=== PATIENT | female | born 1940 | race African-American/Black ===

== ENCOUNTER 2018-07-22 17:38 | Inpatient (IN) | payer MEDICARE, MEDICAID ==
[~2018-07-22] VITALS: Ht 162.6 cm; Wt 57.6 kg
[2018-07-22 21:10] VITALS: BP 161/69
[2018-07-23] VITALS: BP 155/65
[2018-07-23] MEDS ORDERED: ALPRAZolam 0.5mg tab ORAL PRN (00:15)
[2018-07-23] MEDS ORDERED: traMADol 50mg tab ORAL PRN ×4 (00:15→07:45)
[2018-07-23] MEDS ORDERED: COREG3.125 MG ORAL (00:34)
[2018-07-23] MEDS ORDERED: ALPRAZOLAM0.5 MG PO (00:34)
[2018-07-23] MEDS ORDERED: COZAAR100 MG ORAL (00:34)
[2018-07-23 04:00] VITALS: BP 148/73
[2018-07-23 05:55] LABS: BASOPHILS % (AUTO) 0.7 % (0.0-2.0); HEMATOCRIT 39.8 % (37.0-47.0); HEMOGLOBIN 13.2 G/DL (12.0-16.0); LYMPHOCYTES % (AUTO) 20.9 % (20.0-45.0); MEAN CORPUSCULAR VOLUME 90 FL (80-99); MONOCYTES % (AUTO) 9.8 % (1.0-10.0); NEUTROPHILS % (AUTO) 66.6 % (45.0-75.0); PLATELET COUNT 318 K/UL (150-450); RED BLOOD COUNT 4.44 M/UL (4.20-5.40); RED CELL DISTRIBUTION WIDTH 12.2 % (11.6-14.8); WHITE BLOOD COUNT 8.5 K/UL (4.8-10.8)
[2018-07-23] MEDS: Heparin 5000 units/ml inj SUBQ SCH ×3 (06:00→21:38)
[2018-07-23] MEDS: Pantoprazole Inj IVP SCH (06:11)
[2018-07-23 06:24] LABS: ALANINE AMINOTRANSFERASE 24 U/L (12-78); ALBUMIN 3.9 G/DL (3.4-5.0); ALBUMIN/GLOBULIN RATIO 0.8 (1.0-2.7); ALKALINE PHOSPHATASE 68 U/L (46-116); ANION GAP 11 mmol/L (5-15); ASPARTATE AMINO TRANSFERASE 22 U/L (15-37); BILIRUBIN,TOTAL 0.6 MG/DL (0.2-1.0); BLOOD UREA NITROGEN 13 mg/dL (7-18); CARBON DIOXIDE 24 MMOL/L (21-32); CHLORIDE 102 MMOL/L (98-107); CHOLESTEROL 222 MG/DL (< 200); CREATININE 0.6 MG/DL (0.55-1.30); HDL CHOLESTEROL 100 MG/DL (40-60); PHOSPHORUS 2.5 MG/DL (2.5-4.9); POTASSIUM 3.2 MMOL/L (3.5-5.1); SODIUM 137 MMOL/L (136-145); TRIGLYCERIDES 61 MG/DL (30-150)
[2018-07-23 08:00] VITALS: BP 177/74
--- NOTE | 2018-07-23 11:24 | Consultation ---
History of Present Illness General Date patient seen: Jul 23, 2018 Present Illness HPI 78-year-old female who presents with chief complaint of chest pain. the pr is having waxing and waxing of consciousness Allergies: Coded Allergies: IODINE (Verified Allergy, Unknown, 07/23/18) PENICILLINS (Verified Allergy, Unknown, 07/23/18) SULFA (SULFONAMIDE ANTIBIOTICS) (Verified Allergy, Unknown, 07/23/18) Medication History Scheduled Carvedilol (Coreg), 3.125 MG ORAL EVERY 12 HOURS, (Reported) Losartan Potassium (Cozaar), 100 MG ORAL DAILY, (Reported) Scheduled PRN Alprazolam* (Xanax*), 0.5 MG PO Q12HR PRN for prn, (Reported) Patient History History Provided By: Patient, Medical Record, PMD Healthcare decision maker N Resuscitation status Full Code Advanced Directive on File No Review of Systems Psychiatric: Reports: prior hx, anxiety, depressed feelings Physical Exam General Appearance: alert, confused - aaox2 Last 24 Hour Vital Signs Date Time Temp Pulse Resp B/P (MAP) Pulse Ox O2 Delivery O2 Flow Rate FiO2 07/23/18 08:00 98.2 53 18 177/74 (108) 95 98.2 07/23/18 04:00 96.9 62 19 148/73 (98) 99 96.9 07/23/18 00:00 96.4 56 18 155/65 (95) 100 96.4 07/23/18 00:00 52 07/22/18 21:10 96.8 56 20 161/69 (99) 99 96.8 07/22/18 21:10 Room Air Intake and Output 07/22/18 07/23/18 19:00 07:00 # Voids 2 Laboratory Tests Test 07/23/18 04:04 White Blood Count 8.5 K/UL (4.8-10.8) Red Blood Count 4.44 M/UL (4.20-5.40) Hemoglobin 13.2 G/DL (12.0-16.0) Hematocrit 39.8 % (37.0-47.0) Mean Corpuscular Volume 90 FL (80-99) Mean Corpuscular Hemoglobin 29.7 PG (27.0-31.0) Mean Corpuscular Hemoglobin Concent 33.2 G/DL (32.0-36.0) Red Cell Distribution Width 12.2 % (11.6-14.8) Platelet Count 318 K/UL (150-450) Mean Platelet Volume 6.4 FL (6.5-10.1) L Neutrophils (%) (Auto) 66.6 % (45.0-75.0) Lymphocytes (%) (Auto) 20.9 % (20.0-45.0) Monocytes (%) (Auto) 9.8 % (1.0-10.0) Eosinophils (%) (Auto) 2.0 % (0.0-3.0) Basophils (%) (Auto) 0.7 % (0.0-2.0) Sodium Level 137 MMOL/L (136-145) Potassium Level 3.2 MMOL/L (3.5-5.1) L Chloride Level 102 MMOL/L (98-107) Carbon Dioxide Level 24 MMOL/L (21-32) Anion Gap 11 mmol/L (5-15) Blood Urea Nitrogen 13 mg/dL (7-18) Creatinine 0.6 MG/DL (0.55-1.30) Estimat Glomerular Filtration Rate mL/min (>60) Glucose Level 94 MG/DL (74-106) Calcium Level 10.0 MG/DL (8.5-10.1) Phosphorus Level 2.5 MG/DL (2.5-4.9) Magnesium Level 1.8 MG/DL (1.8-2.4) Total Bilirubin 0.6 MG/DL (0.2-1.0) Aspartate Amino Transf (AST/SGOT) 22 U/L (15-37) Alanine Aminotransferase (ALT/SGPT) 24 U/L (12-78) Alkaline Phosphatase 68 U/L (46-116) Troponin I 0.000 ng/mL (0.000-0.056) Total Protein 8.5 G/DL (6.4-8.2) H Albumin 3.9 G/DL (3.4-5.0) Globulin 4.6 g/dL Albumin/Globulin Ratio 0.8 (1.0-2.7) L Triglycerides Level 61 MG/DL (30-150) Cholesterol Level 222 MG/DL (< 200) H LDL Cholesterol 108 mg/dL (<100) H HDL Cholesterol 100 MG/DL (40-60) H Cholesterol/HDL Ratio 2.2 (3.3-4.4) L Thyroid Stimulating Hormone (TSH) 2.815 uiU/mL (0.358-3.740) Height (Feet): 5 Height (Inches): 4.00 Weight (Pounds): 122 Medications Current Medications Medications (Trade) Dose Ordered Sig/Tona Route PRN Reason Start Time Stop Time Status Last Admin Dose Admin Acetaminophen (Tylenol) 650 mg Q6H PRN ORAL Mild Pain/Temp > 100.5 07/23/18 00:15 08/22/18 00:14 Alprazolam (Xanax) 0.5 mg Q12H PRN ORAL For Anxiety 07/23/18 00:15 07/30/18 00:14 07/23/18 03:22 Amlodipine Besylate (Norvasc) 10 mg DAILY ORAL 07/23/18 09:00 08/22/18 08:59 Carvedilol (Coreg) 3.125 mg EVERY 12 HOURS ORAL 07/23/18 09:00 08/22/18 08:59 Citalopram Hydrobromide (celeXA) 10 mg DAILY ORAL 07/23/18 09:00 08/22/18 08:59 Docusate Sodium (Colace) 100 mg TWICE A DAY ORAL 07/23/18 09:00 08/22/18 08:59 Heparin Sodium (Porcine) (Heparin 5000 units/ml) 5,000 units EVERY 8 HOURS SUBQ 07/23/18 06:00 08/22/18 05:59 Hydralazine HCl (Apresoline) 10 mg Q6H PRN ORAL SBP >160 07/23/18 00:15 08/22/18 00:14 Losartan Potassium (Cozaar) 100 mg DAILY ORAL 07/23/18 09:00 08/22/18 08:59 Ondansetron HCl (Zofran) 4 mg Q4H PRN IVP Nausea & Vomiting 07/23/18 00:15 08/22/18 00:14 Pantoprazole (Protonix) 40 mg ACBREAKFAST IVP 07/23/18 06:30 08/22/18 06:29 07/23/18 06:11 Tramadol HCl (Ultram) 100 mg Q12H PRN ORAL Pain (4-10) 07/23/18 07:45 07/30/18 07:44 Assessment/Plan Assessment/Plan encephalopathy due to [facility] Sarah Beth Perez MD Jul 23, 2018 11:24
[2018-07-23 12:00] VITALS: BP 178/66
--- NOTE | 2018-07-23 12:07 | Consultation ---
History of Present Illness General Date patient seen: Jul 23, 2018 Referring physician: Dr Pineda Reason for Consultation: chest pain Present Illness HPI 78 years old female with hx of dementia, Cercival spine fusion, LBBB, HTN, was taken to [facility] with CC of intermittent chest pain, left sided neck and shoulder pain, aggravated by movement. Her BP was 150/40, sat 100% on room air. she had an abnormal EKG, negative troponin. She is transferred [place] [facility] work [place]. Currently, she is sitting up in her bed. looks comfortable. Smiles a lot. Doesn't know her age or address. Children are at bed- site helping with taking HPI. Allergies: Coded Allergies: IODINE (Verified Allergy, Unknown, 07/23/18) PENICILLINS (Verified Allergy, Unknown, 07/23/18) SULFA (SULFONAMIDE ANTIBIOTICS) (Verified Allergy, Unknown, 07/23/18) Medication History Scheduled Carvedilol (Coreg), 3.125 MG ORAL EVERY 12 HOURS, (Reported) Losartan Potassium (Cozaar), 100 MG ORAL DAILY, (Reported) Scheduled PRN Alprazolam* (Xanax*), 0.5 MG PO Q12HR PRN for prn, (Reported) Patient History Healthcare decision maker Resuscitation status Full Code Advanced Directive on File No Past Medical/Surgical History Past Medical/Surgical History: (1) Alzheimer's dementia (2) Hypertension (3) LBBB (left bundle branch block) (4) H/O neck surgery Review of Systems All Other Systems: negative except mentioned in HPI Physical Exam General Appearance: cachetic Lines, tubes and drains: peripheral HEENT: normocephalic, anicteric Neck: non-tender, normal alignment Respiratory/Chest: chest wall non-tender, lungs clear Breasts: no masses Cardiovascular/Chest: normal peripheral pulses Abdomen: normal bowel sounds, non tender Genitourinary/Rectal: normal genital exam Extremities: normal range of motion Skin Exam: normal pigmentation Neurologic: plasterer tender II-XII grossly normal Last 24 Hour Vital Signs Date Time Temp Pulse Resp B/P (MAP) Pulse Ox O2 Delivery O2 Flow Rate FiO2 07/23/18 08:00 98.2 53 18 177/74 (108) 95 98.2 07/23/18 04:00 96.9 62 19 148/73 (98) 99 96.9 07/23/18 00:00 96.4 56 18 155/65 (95) 100 96.4 07/23/18 00:00 52 07/22/18 21:10 96.8 56 20 161/69 (99) 99 96.8 07/22/18 21:10 Room Air Intake and Output 07/22/18 07/23/18 19:00 07:00 # Voids 2 Laboratory Tests Test 07/23/18 04:04 White Blood Count 8.5 K/UL (4.8-10.8) Red Blood Count 4.44 M/UL (4.20-5.40) Hemoglobin 13.2 G/DL (12.0-16.0) Hematocrit 39.8 % (37.0-47.0) Mean Corpuscular Volume 90 FL (80-99) Mean Corpuscular Hemoglobin 29.7 PG (27.0-31.0) Mean Corpuscular Hemoglobin Concent 33.2 G/DL (32.0-36.0) Red Cell Distribution Width 12.2 % (11.6-14.8) Platelet Count 318 K/UL (150-450) Mean Platelet Volume 6.4 FL (6.5-10.1) L Neutrophils (%) (Auto) 66.6 % (45.0-75.0) Lymphocytes (%) (Auto) 20.9 % (20.0-45.0) Monocytes (%) (Auto) 9.8 % (1.0-10.0) Eosinophils (%) (Auto) 2.0 % (0.0-3.0) Basophils (%) (Auto) 0.7 % (0.0-2.0) Sodium Level 137 MMOL/L (136-145) Potassium Level 3.2 MMOL/L (3.5-5.1) L Chloride Level 102 MMOL/L (98-107) Carbon Dioxide Level 24 MMOL/L (21-32) Anion Gap 11 mmol/L (5-15) Blood Urea Nitrogen 13 mg/dL (7-18) Creatinine 0.6 MG/DL (0.55-1.30) Estimat Glomerular Filtration Rate mL/min (>60) Glucose Level 94 MG/DL (74-106) Calcium Level 10.0 MG/DL (8.5-10.1) Phosphorus Level 2.5 MG/DL (2.5-4.9) Magnesium Level 1.8 MG/DL (1.8-2.4) Total Bilirubin 0.6 MG/DL (0.2-1.0) Aspartate Amino Transf (AST/SGOT) 22 U/L (15-37) Alanine Aminotransferase (ALT/SGPT) 24 U/L (12-78) Alkaline Phosphatase 68 U/L (46-116) Troponin I 0.000 ng/mL (0.000-0.056) Total Protein 8.5 G/DL (6.4-8.2) H Albumin 3.9 G/DL (3.4-5.0) Globulin 4.6 g/dL Albumin/Globulin Ratio 0.8 (1.0-2.7) L Triglycerides Level 61 MG/DL (30-150) Cholesterol Level 222 MG/DL (< 200) H LDL Cholesterol 108 mg/dL (<100) H HDL Cholesterol 100 MG/DL (40-60) H Cholesterol/HDL Ratio 2.2 (3.3-4.4) L Thyroid Stimulating Hormone (TSH) 2.815 uiU/mL (0.358-3.740) Height (Feet): 5 Height (Inches): 4.00 Weight (Pounds): 122 Medications Current Medications Medications (Trade) Dose Ordered Sig/Tona Route PRN Reason Start Time Stop Time Status Last Admin Dose Admin Acetaminophen (Tylenol) 650 mg Q6H PRN ORAL Mild Pain/Temp > 100.5 07/23/18 00:15 08/22/18 00:14 Alprazolam (Xanax) 0.5 mg Q12H PRN ORAL For Anxiety 07/23/18 00:15 07/30/18 00:14 07/23/18 03:22 Amlodipine Besylate (Norvasc) 10 mg DAILY ORAL 07/23/18 09:00 08/22/18 08:59 Carvedilol (Coreg) 3.125 mg EVERY 12 HOURS ORAL 07/23/18 09:00 08/22/18 08:59 Citalopram Hydrobromide (celeXA) 10 mg DAILY ORAL 07/23/18 09:00 08/22/18 08:59 Docusate Sodium (Colace) 100 mg TWICE A DAY ORAL 9/6/18 09:00 08/22/18 08:59 Heparin Sodium (Porcine) (Heparin 5000 units/ml) 5,000 units EVERY 8 HOURS SUBQ 07/23/18 06:00 08/22/18 05:59 Hydralazine HCl (Apresoline) 10 mg Q6H PRN ORAL SBP >160 07/23/18 00:15 08/22/18 00:14 Losartan Potassium (Cozaar) 100 mg DAILY ORAL 07/23/18 09:00 08/22/18 08:59 Ondansetron HCl (Zofran) 4 mg Q4H PRN IVP Nausea & Vomiting 07/23/18 00:15 08/22/18 00:14 Pantoprazole (Protonix) 40 mg ACBREAKFAST IVP 07/23/18 06:30 08/22/18 06:29 07/23/18 06:11 Tramadol HCl (Ultram) 100 mg Q12H PRN ORAL Pain (4-10) 07/23/18 07:45 07/30/18 07:44 Assessment/Plan Problem List: (1) Acute coronary syndrome ICD Codes: I24.9 - Acute ischemic heart disease, unspecified SNOMED: 664784386 (2) LBBB (left bundle branch block) ICD Codes: I44.7 - Left bundle-branch block, unspecified SNOMED: 88492326 (3) Hypertension ICD Codes: I10 - Essential (primary) hypertension SNOMED: 44598250 (4) Alzheimer's dementia ICD Codes: G30.9 - Alzheimer's disease, unspecified; F02.80 - Dementia in other diseases classified elsewhere without behavioral disturbance SNOMED: 30162246 (5) H/O neck surgery ICD Codes: Z98.890 - Other specified postprocedural states SNOMED: 722450235 Assessment/Plan serial ekg, troponin check Echo monitor BP symptomatic treatment low risk for PE, dvt prophylaxis. Opal Olivares MD Jul 23, 2018 12:07
[2018-07-23] MEDS: Docusate 100mg cap ORAL SCH ×2 (12:23→18:09)
[2018-07-23] MEDS: Losartan 50mg tab ORAL SCH (12:25)
[2018-07-23] MEDS: Citalopram Hydrobromide 10mg Tab ORAL SCH (12:25)
[2018-07-23 16:00] VITALS: BP 163/53
--- NOTE | 2018-07-23 19:09 | History & Physical ---
History and Physical History & Physicial Dictated for Int Med-Dr Pineda no. [id number]. Manuel William MD Jul 23, 2018 19:08
[2018-07-23 20:00] VITALS: BP 116/92
[2018-07-24] VITALS: BP 144/58
--- NOTE | 2018-07-24 01:30 | History and Physical Report ---
DATE OF ADMISSION: 07/22/2018 CHIEF COMPLAINT: This is a 78-year-old female who presents with chief complaint of chest pain. HISTORY OF PRESENT ILLNESS: On 07/22/2018, the patient began to have chest pain. The patient states chest pain is nonradiating. The patient herself is somewhat confused, unable to answer questions directly. The patient presented to [facility] emergency room. The patient is transferred to [facility] for insurance purposes. The patient is admitted for chest pain to rule out acute coronary syndrome. PAST MEDICAL HISTORY: Significant for: 1. Alzheimer's dementia. 2. Irritable bowel syndrome. 3. History of cervical spine stenosis. 4. Hypertension. 5. Left bundle-branch block. PAST SURGICAL HISTORY: Unknown. CURRENT MEDICATIONS: 1. Xanax 0.5 mg p.o. twice daily p.r.n. 2. Carvedilol 3.125 mg p.o. twice daily. 3. Losartan 100 mg p.o. daily. ALLERGIES: 1. Iodine. 2. Penicillin. 3. Sulfa. SOCIAL HISTORY: The patient is . The patient denies tobacco or alcohol use. PHYSICAL EXAMINATION: VITAL SIGNS: Temperature 98.0, respirations 18, pulse 53, and blood pressure 178/66. GENERAL: The patient is a well-developed and well-nourished female, in no apparent distress. HEENT: Eyes, pupils are equal and responsive to light and accommodation. Extraocular movements are intact. NECK: Supple without lymphadenopathy. CHEST: Lungs are clear to auscultation bilaterally without wheezes or rales. CARDIOVASCULAR: Regular rhythm and rate. S1 and S2 are normal without murmurs, rubs, or gallops. ABDOMEN: Soft, nontender, and nondistended. Positive bowel sounds. No evidence of hepatosplenomegaly. Currently, no rebound or guarding noted. EXTREMITIES: Negative for clubbing, cyanosis, or edema. RECTAL/GENITAL: Refused. NEUROLOGIC: Cranial nerves II through XII are grossly intact without focal deficits. Motor strength is 5/5 bilaterally. Deep tendon reflexes are 2+ plantar. LABORATORY STUDIES: WBC 9.3, hemoglobin 12.5, hematocrit 37.8, and platelets 310,000. Sodium 139, potassium 4.1, chloride 107, CO2 25, BUN 16, creatinine 0.67, and glucose 129. Troponin less than 0.02. BNP 86. Urinalysis was within normal limits. ASSESSMENT: This is a 78-year-old female with: 1. Chest pain. 2. Hypertension. 3. Alzheimer's dementia. 4. Cervical spine stenosis. 5. Left bundle-branch block. TREATMENT: 1. Chest pain. A Cardiology consultation with Dr. Medina. Serial troponin levels will be performed. We will hold stress test for now due to the patient's age. 2. Hypertension. Continue Coreg as above. 3. Alzheimer's dementia. 4. Cervical spine stenosis. The patient is status post cervical spine fusion. 5. Left bundle-branch block. Manuel William M.D. DR: SILVIA JOB#: [id number] CC:
[2018-07-24 04:00] VITALS: BP 149/59
[2018-07-24] MEDS: Heparin 5000 units/ml inj SUBQ SCH ×3 (05:39→21:19)
[2018-07-24] MEDS: Pantoprazole Inj IVP SCH (05:39)
[2018-07-24 07:43] LABS: BASOPHILS % (AUTO) 0.8 % (0.0-2.0); EOSINOPHILS % (AUTO) 0.9 % (0.0-3.0); HEMATOCRIT 38.7 % (37.0-47.0); HEMOGLOBIN 12.8 G/DL (12.0-16.0); LYMPHOCYTES % (AUTO) 17.4 % (20.0-45.0); MEAN CORPUSCULAR VOLUME 89 FL (80-99); MONOCYTES % (AUTO) 10.1 % (1.0-10.0); NEUTROPHILS % (AUTO) 70.8 % (45.0-75.0); PLATELET COUNT 315 K/UL (150-450); RED BLOOD COUNT 4.36 M/UL (4.20-5.40); RED CELL DISTRIBUTION WIDTH 12.3 % (11.6-14.8); WHITE BLOOD COUNT 8.2 K/UL (4.8-10.8)
[2018-07-24 08:00] VITALS: BP 139/94
[2018-07-24 08:06] LABS: ANION GAP 9 mmol/L (5-15); BLOOD UREA NITROGEN 14 mg/dL (7-18); CALCIUM 9.8 MG/DL (8.5-10.1); CARBON DIOXIDE 25 MMOL/L (21-32); CHLORIDE 102 MMOL/L (98-107); CREATININE 0.7 MG/DL (0.55-1.30); POTASSIUM 3.7 MMOL/L (3.5-5.1); SODIUM 136 MMOL/L (136-145)
[2018-07-24] MEDS: Citalopram Hydrobromide 10mg Tab ORAL SCH (08:40)
[2018-07-24] MEDS: Losartan 50mg tab ORAL SCH (08:40)
[2018-07-24] MEDS: Docusate 100mg cap ORAL SCH ×2 (08:40→17:20)
--- NOTE | 2018-07-24 10:07 | Pulmonology Progress Note ---
Assessment/Plan Problems: (1) Acute coronary syndrome (2) LBBB (left bundle branch block) (3) Hypertension (4) Alzheimer's dementia (5) H/O neck surgery Assessment/Plan echo reviewed enzymes negative PT/OT evaluation bp is controlled social service consult for home safety Subjective ROS Limited/Unobtainable: No Constitutional: Reports: no symptoms HEENT: Repors: no symptoms Respiratory: Reports: no symptoms Cardiovascular: Reports: no symptoms Gastrointestinal/Abdominal: Reports: no symptoms Allergies: Coded Allergies: IODINE (Verified Allergy, Unknown, 07/23/18) PENICILLINS (Verified Allergy, Unknown, 07/23/18) SULFA (SULFONAMIDE ANTIBIOTICS) (Verified Allergy, Unknown, 07/23/18) Objective Last 24 Hour Vital Signs Date Time Temp Pulse Resp B/P (MAP) Pulse Ox O2 Delivery O2 Flow Rate FiO2 07/24/18 09:00 Room Air 07/24/18 08:40 81 139/94 07/24/18 08:40 81 139/94 07/24/18 08:40 139/94 07/24/18 08:00 97.8 81 19 139/94 (109) 96 97.8 07/24/18 04:00 98.6 57 18 149/59 (89) 97 98.6 07/24/18 04:00 59 07/24/18 00:00 58 07/24/18 00:00 99.0 56 17 144/58 (86) 97 99.0 07/23/18 21:37 72 116/92 07/23/18 21:00 Room Air 07/23/18 20:00 66 07/23/18 20:00 98.2 72 18 116/92 (100) 99 98.2 07/23/18 16:00 97.7 57 18 163/53 (89) 95 97.7 07/23/18 16:00 55 07/23/18 12:26 53 178/66 07/23/18 12:25 178/66 07/23/18 12:24 53 178/66 07/23/18 12:00 48 07/23/18 12:00 98.0 53 18 178/66 (103) 95 98.0 Intake and Output 07/23/18 07/24/18 19:00 07:00 Intake Total 720 ml Output Total 600 ml 400 ml Balance 120 ml -400 ml Intake Oral 720 ml Output Urine Total 600 ml 400 ml General Appearance: WD/WN HEENT: normocephalic, atraumatic Respiratory/Chest: chest wall non-tender, lungs clear Breasts: no masses Cardiovascular: normal peripheral pulses Abdomen: normal bowel sounds, soft, non tender Extremities: no cyanosis Skin: no lesions Neurologic/Psychiatric: resolution rep II-XII grossly normal Laboratory Tests 07/23/18 12:05: Troponin I 0.005 07/23/18 19:55: Troponin I 0.007 07/24/18 06:10: White Blood Count 8.2, Red Blood Count 4.36, Hemoglobin 12.8, Hematocrit 38.7, Mean Corpuscular Volume 89, Mean Corpuscular Hemoglobin 29.4, Mean Corpuscular Hemoglobin Concent 33.2, Red Cell Distribution Width 12.3, Platelet Count 315, Mean Platelet Volume 6.9, Neutrophils (%) (Auto) 70.8, Lymphocytes (%) (Auto) 17.4L, Monocytes (%) (Auto) 10.1H, Eosinophils (%) (Auto) 0.9, Basophils (%) ( Auto) 0.8, Sodium Level 136, Potassium Level 3.7, Chloride Level 102, Carbon Dioxide Level 25, Anion Gap 9, Blood Urea Nitrogen 14, Creatinine 0.7, Estimat Glomerular Filtration Rate , Glucose Level 109H, Calcium Level 9.8 Current Medications Medications (Trade) Dose Ordered Sig/Tona Route PRN Reason Start Time Stop Time Status Last Admin Dose Admin Acetaminophen (Tylenol) 650 mg Q6H PRN ORAL Mild Pain/Temp > 100.5 07/23/18 00:15 08/22/18 00:14 Alprazolam (Xanax) 0.5 mg Q12H PRN ORAL For Anxiety 07/23/18 00:15 07/30/18 00:14 07/23/18 03:22 Amlodipine Besylate (Norvasc) 10 mg DAILY ORAL 07/23/18 09:00 08/22/18 08:59 07/24/18 08:40 Carvedilol (Coreg) 3.125 mg EVERY 12 HOURS ORAL 07/23/18 09:00 08/22/18 08:59 07/24/18 08:40 Citalopram Hydrobromide (celeXA) 10 mg DAILY ORAL 07/23/18 09:00 10/6/18 08:59 07/24/18 08:40 Docusate Sodium (Colace) 100 mg TWICE A DAY ORAL 07/23/18 09:00 08/22/18 08:59 07/24/18 08:40 Heparin Sodium (Porcine) (Heparin 5000 units/ml) 5,000 units EVERY 8 HOURS SUBQ 07/23/18 06:00 08/22/18 05:59 07/24/18 05:39 Hydralazine HCl (Apresoline) 10 mg Q6H PRN ORAL SBP >160 07/23/18 00:15 08/22/18 00:14 Losartan Potassium (Cozaar) 100 mg DAILY ORAL 07/23/18 09:00 08/22/18 08:59 07/24/18 08:40 Ondansetron HCl (Zofran) 4 mg Q4H PRN IVP Nausea & Vomiting 07/23/18 00:15 08/22/18 00:14 Pantoprazole (Protonix) 40 mg ACBREAKFAST IVP 07/23/18 06:30 08/22/18 06:29 07/24/18 05:39 Tramadol HCl (Ultram) 100 mg Q12H PRN ORAL Pain (4-10) 07/23/18 07:45 07/30/18 07:44 Opal Olivares MD Jul 24, 2018 10:07
[2018-07-24 12:00] VITALS: BP_SYST 129; BP_SYST 139; BP_DIAS 76; BP_DIAS 89
--- NOTE | 2018-07-24 12:54 | Cardiac Electrophysiology PN ---
Subjective Subjective [id number] Objective Last 24 Hour Vital Signs Date Time Temp Pulse Resp B/P (MAP) Pulse Ox O2 Delivery O2 Flow Rate FiO2 07/24/18 12:00 98.6 79 18 129/89 (102) 97 98.6 07/24/18 09:00 Room Air 07/24/18 08:40 81 139/94 07/24/18 08:40 81 139/94 07/24/18 08:40 139/94 07/24/18 08:00 97.8 81 19 139/94 (109) 96 97.8 07/24/18 04:00 98.6 57 18 149/59 (89) 97 98.6 07/24/18 04:00 59 07/24/18 00:00 58 07/24/18 00:00 99.0 56 17 144/58 (86) 97 99.0 07/23/18 21:37 72 116/92 07/23/18 21:00 Room Air 07/23/18 20:00 66 07/23/18 20:00 98.2 72 18 116/92 (100) 99 98.2 07/23/18 16:00 97.7 57 18 163/53 (89) 95 97.7 07/23/18 16:00 55 Intake and Output 07/23/18 07/24/18 19:00 07:00 Intake Total 720 ml Output Total 600 ml 400 ml Balance 120 ml -400 ml Intake Oral 720 ml Output Urine Total 600 ml 400 ml Laboratory Tests Test 07/23/18 19:55 07/24/18 06:10 Troponin I 0.007 ng/mL (0.000-0.056) White Blood Count 8.2 K/UL (4.8-10.8) Red Blood Count 4.36 M/UL (4.20-5.40) Hemoglobin 12.8 G/DL (12.0-16.0) Hematocrit 38.7 % (37.0-47.0) Mean Corpuscular Volume 89 FL (80-99) Mean Corpuscular Hemoglobin 29.4 PG (27.0-31.0) Mean Corpuscular Hemoglobin Concent 33.2 G/DL (32.0-36.0) Red Cell Distribution Width 12.3 % (11.6-14.8) Platelet Count 315 K/UL (150-450) Mean Platelet Volume 6.9 FL (6.5-10.1) Neutrophils (%) (Auto) 70.8 % (45.0-75.0) Lymphocytes (%) (Auto) 17.4 % (20.0-45.0) L Monocytes (%) (Auto) 10.1 % (1.0-10.0) H Eosinophils (%) (Auto) 0.9 % (0.0-3.0) Basophils (%) (Auto) 0.8 % (0.0-2.0) Sodium Level 136 MMOL/L (136-145) Potassium Level 3.7 MMOL/L (3.5-5.1) Chloride Level 102 MMOL/L (98-107) Carbon Dioxide Level 25 MMOL/L (21-32) Anion Gap 9 mmol/L (5-15) Blood Urea Nitrogen 14 mg/dL (7-18) Creatinine 0.7 MG/DL (0.55-1.30) Estimat Glomerular Filtration Rate mL/min (>60) Glucose Level 109 MG/DL (74-106) H Calcium Level 9.8 MG/DL (8.5-10.1) Jose Juan Vaca MD Jul 24, 2018 12:54
--- NOTE | 2018-07-24 14:29 | General Progress Note ---
Assessment/Plan Assessment/Plan [place] [facility] [place] seroquel [place] Subjective Date patient seen: Jul 24, 2018 Neurologic/Psychiatric: Reports: anxiety Allergies: Coded Allergies: IODINE (Verified Allergy, Unknown, 07/23/18) PENICILLINS (Verified Allergy, Unknown, 07/23/18) SULFA (SULFONAMIDE ANTIBIOTICS) (Verified Allergy, Unknown, 07/23/18) Objective Last 24 Hour Vital Signs Date Time Temp Pulse Resp B/P (MAP) Pulse Ox O2 Delivery O2 Flow Rate FiO2 07/24/18 12:00 98.6 79 18 129/89 (102) 97 98.6 07/24/18 09:00 Room Air 07/24/18 08:40 81 139/94 07/24/18 08:40 81 139/94 07/24/18 08:40 139/94 07/24/18 08:00 97.8 81 19 139/94 (109) 96 97.8 07/24/18 04:00 98.6 57 18 149/59 (89) 97 98.6 07/24/18 04:00 59 07/24/18 00:00 58 07/24/18 00:00 99.0 56 17 144/58 (86) 97 99.0 07/23/18 21:37 72 116/92 07/23/18 21:00 Room Air 07/23/18 20:00 66 07/23/18 20:00 98.2 72 18 116/92 (100) 99 98.2 07/23/18 16:00 97.7 57 18 163/53 (89) 95 97.7 07/23/18 16:00 55 Intake and Output 07/23/18 07/24/18 19:00 07:00 Intake Total 720 ml Output Total 600 ml 400 ml Balance 120 ml -400 ml Intake Oral 720 ml Output Urine Total 600 ml 400 ml Laboratory Tests 07/23/18 19:55: Troponin I 0.007 07/24/18 06:10: White Blood Count 8.2, Red Blood Count 4.36, Hemoglobin 12.8, Hematocrit 38.7, Mean Corpuscular Volume 89, Mean Corpuscular Hemoglobin 29.4, Mean Corpuscular Hemoglobin Concent 33.2, Red Cell Distribution Width 12.3, Platelet Count 315, Mean Platelet Volume 6.9, Neutrophils (%) (Auto) 70.8, Lymphocytes (%) (Auto) 17.4L, Monocytes (%) (Auto) 10.1H, Eosinophils (%) (Auto) 0.9, Basophils (%) ( Auto) 0.8, Sodium Level 136, Potassium Level 3.7, Chloride Level 102, Carbon Dioxide Level 25, Anion Gap 9, Blood Urea Nitrogen 14, Creatinine 0.7, Estimat Glomerular Filtration Rate , Glucose Level 109H, Calcium Level 9.8 Height (Feet): 5 Height (Inches): 4.00 Weight (Pounds): 122 General Appearance: no apparent distress, confused Sarah Beth Hare MD Jul 24, 2018 14:29
[2018-07-24 16:00] VITALS: BP 147/72
--- NOTE | 2018-07-24 18:39 | Internal Med Progress Note ---
Subjective Date of Service: Jul 24, 2018 Physician Name William,Manuel Attending Physician Wolf Pineda MD Current Medications Medications (Trade) Dose Ordered Sig/Tona Route PRN Reason Start Time Stop Time Status Last Admin Dose Admin Acetaminophen (Tylenol) 650 mg Q6H PRN ORAL Mild Pain/Temp > 100.5 07/23/18 00:15 08/22/18 00:14 Alprazolam (Xanax) 0.5 mg Q12H PRN ORAL For Anxiety 07/23/18 00:15 07/30/18 00:14 07/23/18 03:22 Amlodipine Besylate (Norvasc) 10 mg DAILY ORAL 07/23/18 09:00 08/22/18 08:59 07/24/18 08:40 Citalopram Hydrobromide (celeXA) 20 mg DAILY ORAL 07/25/18 09:00 08/24/18 08:59 Docusate Sodium (Colace) 100 mg TWICE A DAY ORAL 07/23/18 09:00 08/22/18 08:59 07/24/18 17:20 Heparin Sodium (Porcine) (Heparin 5000 units/ml) 5,000 units EVERY 8 HOURS SUBQ 07/23/18 06:00 08/22/18 05:59 07/24/18 14:40 Hydralazine HCl (Apresoline) 10 mg Q6H PRN ORAL SBP >160 07/23/18 00:15 08/22/18 00:14 Losartan Potassium (Cozaar) 100 mg DAILY ORAL 07/23/18 09:00 08/22/18 08:59 07/24/18 08:40 Ondansetron HCl (Zofran) 4 mg Q4H PRN IVP Nausea & Vomiting 07/23/18 00:15 08/22/18 00:14 Pantoprazole (Protonix) 40 mg ACBREAKFAST IVP 07/23/18 06:30 08/22/18 06:29 07/24/18 05:39 Quetiapine Fumarate (SEROquel) 12.5 mg EVERY 4 HOURS PRN ORAL agitation 07/24/18 14:00 08/23/18 13:59 Tramadol HCl (Ultram) 100 mg Q12H PRN ORAL Pain (4-10) 07/23/18 07:45 07/30/18 07:44 Allergies: Coded Allergies: IODINE (Verified Allergy, Unknown, 07/23/18) PENICILLINS (Verified Allergy, Unknown, 07/23/18) SULFA (SULFONAMIDE ANTIBIOTICS) (Verified Allergy, Unknown, 07/23/18) ROS Limited/Unobtainable: No Constitutional: Reports: no symptoms HEENT: Reports: no symptoms Cardiovascular: Reports: chest pain Respiratory: Reports: no symptoms Gastrointestinal/Abdominal: Reports: no symptoms Genitourinary: Reports: no symptoms Neurologic/Psychiatric: Reports: no symptoms Subjective 78 YO F admitted with chief complaint of chest pain. Now bradycardia. Cover for Int Al-Dr Pineda Objective Last Vital Signs Date Time Temp Pulse Resp B/P (MAP) Pulse Ox O2 Delivery O2 Flow Rate FiO2 07/24/18 16:00 58 07/24/18 16:00 98.0 19 147/72 (97) 98 98.0 07/24/18 09:00 Room Air General Appearance: WD/WN, no apparent distress, alert EENT: PERRL/EOMI, normal ENT inspection, TMs normal Neck: non-tender, normal alignment, supple Cardiovascular: normal peripheral pulses, regular rhythm, no gallop/murmur, no JVD, bradycardia Respiratory/Chest: chest wall non-tender, lungs clear, normal breath sounds, no respiratory distress, no accessory muscle use Abdomen: normal bowel sounds, non tender, soft, no organomegaly, no mass Extremities: normal range of motion, non-tender Neurologic: pearl peller II-XII grossly normal, no motor/sensory deficits Skin: normal pigmentation, warm/dry Laboratory Tests Test 07/23/18 19:55 07/24/18 06:10 Troponin I 0.007 ng/mL (0.000-0.056) White Blood Count 8.2 K/UL (4.8-10.8) Red Blood Count 4.36 M/UL (4.20-5.40) Hemoglobin 12.8 G/DL (12.0-16.0) Hematocrit 38.7 % (37.0-47.0) Mean Corpuscular Volume 89 FL (80-99) Mean Corpuscular Hemoglobin 29.4 PG (27.0-31.0) Mean Corpuscular Hemoglobin Concent 33.2 G/DL (32.0-36.0) Red Cell Distribution Width 12.3 % (11.6-14.8) Platelet Count 315 K/UL (150-450) Mean Platelet Volume 6.9 FL (6.5-10.1) Neutrophils (%) (Auto) 70.8 % (45.0-75.0) Lymphocytes (%) (Auto) 17.4 % (20.0-45.0) L Monocytes (%) (Auto) 10.1 % (1.0-10.0) H Eosinophils (%) (Auto) 0.9 % (0.0-3.0) Basophils (%) (Auto) 0.8 % (0.0-2.0) Sodium Level 136 MMOL/L (136-145) Potassium Level 3.7 MMOL/L (3.5-5.1) Chloride Level 102 MMOL/L (98-107) Carbon Dioxide Level 25 MMOL/L (21-32) Anion Gap 9 mmol/L (5-15) Blood Urea Nitrogen 14 mg/dL (7-18) Creatinine 0.7 MG/DL (0.55-1.30) Estimat Glomerular Filtration Rate mL/min (>60) Glucose Level 109 MG/DL (74-106) H Calcium Level 9.8 MG/DL (8.5-10.1) Intake and Output 07/23/18 07/24/18 19:00 07:00 Intake Total 720 ml Output Total 600 ml 400 ml Balance 120 ml -400 ml Intake Oral 720 ml Output Urine Total 600 ml 400 ml Assessment/Plan Problem List: (1) Cervical stenosis of spinal canal (2) Chest pain Assessment & Plan: Ruled out for Acute CA by troponin. See cardiology note (3) Hypertension (4) LBBB (left bundle branch block) (5) Alzheimer's dementia (6) Bradycardia Assessment & Plan: Due to LBBB-see cardiology note. D/C coreg Status: progressing Manuel William MD Jul 24, 2018 18:39
[2018-07-24 20:00] VITALS: BP 142/66
--- NOTE | 2018-07-24 21:15 | Consultation ---
DATE OF CONSULTATION: 07/24/2018 CARDIOLOGY CONSULTATION CONSULTING PHYSICIAN: Jose Juan Vaca M.D. REFERRING PHYSICIAN: Wolf Pineda M.D. REASON FOR CONSULTATION: Bradycardia and left bundle-branch block. HISTORY OF PRESENT ILLNESS: The patient is a 78-year-old lady, who was brought to the emergency room for chest pain and being confused and not been able to answer questions directly. The patient was initially taken to [facility] emergency room and was transferred to [facility] for insurance reasons. The patient was admitted and a 12-lead EKG of 07/22/2018 showed marked sinus bradycardia, rate of 143 as well as complete left bundle-branch block. Her EKG was repeated, was only 42 beats per minute with again left bundle-branch block. At the time of my evaluation, the patient is still confused, but specifically denies any chest pain. The family at the bedside. PAST MEDICAL HISTORY: 1. Hypertension. 2. Left bundle-branch block. 3. Cervical spine stenosis. 4. Irritable bowel syndrome. 5. Alzheimer's dementia. MEDICATIONS: At home include Coreg, losartan and Xanax. ALLERGIES: She is allergic to penicillin, iodine and sulfa. SOCIAL HISTORY: She denies smoke or drink alcohol. REVIEW OF SYSTEMS: Negative other than what is mentioned in the history of present illness. PHYSICAL EXAMINATION: VITAL SIGNS: Blood pressure of 129/89, pulse 79, respirations 18, and she is afebrile. HEAD AND NECK: No JVD or carotid bruit. LUNGS: Clear. CARDIOVASCULAR: Bradycardic. S1 and S2 with no gallop or murmur. ABDOMEN: Soft. EXTREMITIES: No pitting edema. LABORATORY AND DIAGNOSTIC DATA: Her EKG had showed sinus bradycardia at 42, complete left bundle-branch block. Echocardiogram show ejection fraction of 55% to 60% with no stenosis. Labs show white count of 8.2, hemoglobin 12.8, hematocrit 38.7, and platelet count of 315. Sodium , potassium 3.7, BUN of 14, and creatinine 0.7. Troponin negative x3. ASSESSMENT AND PLAN: 1. Chest pain, that is atypical. The patient was confused, will be ruled out for myocardial infarction, however, she has underlying left bundle-branch block. If she stabilizes neurologically by Friday, we can do a stress test for further evaluation. 2. Profound bradycardia with heart rate 40 as well as complete left bundle-branch block. We will discontinue Coreg and watch the patient on telemetry. 3. Hypertension. Again, discontinue Coreg and continue amlodipine 10 mg daily and add lisinopril to her medical regimen. 4. Complete left bundle-branch block. 5. Anxiety. 6. Dementia. Thank you very much, Dr. Pineda, for allowing me to participate in the care of this patient. Please do not hesitate to contact me for any questions regarding my evaluation. Jose Juan Vaca M.D. DR: HANH JOB#: [id number] CC:
[2018-07-25] VITALS: BP 134/54
[2018-07-25 04:00] VITALS: BP 156/58
[2018-07-25 06:37] LABS: BASOPHILS % (AUTO) 0.6 % (0.0-2.0); EOSINOPHILS % (AUTO) 0.5 % (0.0-3.0); LYMPHOCYTES % (AUTO) 17.7 % (20.0-45.0); MEAN CORPUSCULAR VOLUME 89 FL (80-99); MONOCYTES % (AUTO) 12.5 % (1.0-10.0); NEUTROPHILS % (AUTO) 68.7 % (45.0-75.0); PLATELET COUNT 317 K/UL (150-450); RED BLOOD COUNT 4.04 M/UL (4.20-5.40); RED CELL DISTRIBUTION WIDTH 12.2 % (11.6-14.8); WHITE BLOOD COUNT 8.5 K/UL (4.8-10.8)
[2018-07-25] MEDS: Pantoprazole Inj IVP SCH (06:43)
[2018-07-25] MEDS: Heparin 5000 units/ml inj SUBQ SCH ×3 (06:45→21:43)
[2018-07-25 06:55] LABS: ANION GAP 9 mmol/L (5-15); BLOOD UREA NITROGEN 12 mg/dL (7-18); CALCIUM 10.1 MG/DL (8.5-10.1); CARBON DIOXIDE 26 MMOL/L (21-32); CHLORIDE 102 MMOL/L (98-107); CREATININE 0.6 MG/DL (0.55-1.30); POTASSIUM 3.5 MMOL/L (3.5-5.1); SODIUM 137 MMOL/L (136-145)
[2018-07-25 08:00] VITALS: BP 159/69
[2018-07-25] MEDS: Docusate 100mg cap ORAL SCH ×2 (08:18→17:16)
[2018-07-25] MEDS: Citalopram Hydrobromide 10mg Tab ORAL SCH (08:19)
[2018-07-25] MEDS: Losartan 50mg tab ORAL SCH (08:19)
--- NOTE | 2018-07-25 08:24 | Pulmonology Progress Note ---
Assessment/Plan Assessment/Plan ASSESSMENT Atypical chest pain , ( ruled out for AC)S complete LBBB bradycardia HTN moderate pulmonary HTN hypo K Alzheimer dementia cervical spine stenosis with history of neck surgery hyperlipidemia twitching episodes recurrent, possible partial seizures PLAN OF CARE Tele serial troponin negative EKG revealed no acute ischemic changes patient was r/o for acute DC ECHO with pEF 55-60% and RVSP of 55 , no evidence of WMA cardio follows off BB BP management with multiple regimen of anti-HTN CCB and ARB, no blocking agents Pain management addressed K replaced , stable lipid panel with elevated TC and LDL, start statin educated on cardiac low cholesterol diet pain management addressed DVT/ GI prophylaxis PT/OT neuro eval pending supportive care case discussed and evaluated by supervising physician Subjective Allergies: Coded Allergies: IODINE (Verified Allergy, Unknown, 07/23/18) PENICILLINS (Verified Allergy, Unknown, 07/23/18) SULFA (SULFONAMIDE ANTIBIOTICS) (Verified Allergy, Unknown, 07/23/18) Subjective denies chest pain, SOB pulse oz stable on RA on tele sinus jerel 55 with LBBB episode of twitching while sitting in the chair, family reported prior episodes of twitching as well Objective Last 24 Hour Vital Signs Date Time Temp Pulse Resp B/P (MAP) Pulse Ox O2 Delivery O2 Flow Rate FiO2 07/25/18 08:19 159/69 07/25/18 08:18 55 159/69 07/25/18 04:00 98.3 75 20 156/58 (90) 99 98.3 07/25/18 04:00 52 07/25/18 00:00 63 07/25/18 00:00 98.1 63 20 134/54 (80) 98 98.1 07/24/18 21:00 Room Air 07/24/18 20:00 98.1 63 20 142/66 (91) 98 98.1 07/24/18 20:00 63 07/24/18 16:00 58 07/24/18 16:00 98.0 58 19 147/72 (97) 98 98.0 07/24/18 12:00 98.6 79 18 129/89 (102) 97 98.6 07/24/18 12:00 55 07/24/18 09:00 Room Air 07/24/18 08:40 81 139/94 07/24/18 08:40 81 139/94 07/24/18 08:40 139/94 Intake and Output 07/24/18 07/25/18 19:00 07:00 Intake Total 550 ml Output Total 500 ml Balance 50 ml Other 550 ml Output Urine Total 500 ml # Voids 3 General Appearance: no acute distress, other - awake, resposnive, HEENT: normocephalic, atraumatic, anicteric Respiratory/Chest: lungs clear, no respiratory distress, no accessory muscle use Cardiovascular: no gallop/murmur, bradycardia - HR 55 with SR and LBBB on tele Abdomen: normal bowel sounds, soft, non tender, non distended Neurologic/Psychiatric: alert, responsive Musculoskeletal: atrophy - BLE Laboratory Tests 07/25/18 06:00: White Blood Count 8.5, Red Blood Count 4.04L, Hemoglobin 12.0, Hematocrit 36.0L , Mean Corpuscular Volume 89, Mean Corpuscular Hemoglobin 29.8, Mean Corpuscular Hemoglobin Concent 33.5, Red Cell Distribution Width 12.2, Platelet Count 317, Mean Platelet Volume 6.9, Neutrophils (%) (Auto) 68.7, Lymphocytes (% ) (Auto) 17.7L, Monocytes (%) (Auto) 12.5H, Eosinophils (%) (Auto) 0.5, Basophils (%) (Auto) 0.6, Sodium Level 137, Potassium Level 3.5, Chloride Level 102, Carbon Dioxide Level 26, Anion Gap 9, Blood Urea Nitrogen 12, Creatinine 0.6, Estimat Glomerular Filtration Rate , Glucose Level 117H, Calcium Level 10.1 Current Medications Medications (Trade) Dose Ordered Sig/Tona Route PRN Reason Start Time Stop Time Status Last Admin Dose Admin Acetaminophen (Tylenol) 650 mg Q6H PRN ORAL Mild Pain/Temp > 100.5 07/23/18 00:15 08/22/18 00:14 Alprazolam (Xanax) 0.5 mg Q12H PRN ORAL For Anxiety 07/23/18 00:15 07/30/18 00:14 07/23/18 03:22 Amlodipine Besylate (Norvasc) 10 mg DAILY ORAL 07/23/18 09:00 08/22/18 08:59 07/25/18 08:18 Citalopram Hydrobromide (celeXA) 20 mg DAILY ORAL 07/25/18 09:00 08/24/18 08:59 07/25/18 08:19 Docusate Sodium (Colace) 100 mg TWICE A DAY ORAL 07/23/18 09:00 08/22/18 08:59 07/25/18 08:18 Heparin Sodium (Porcine) (Heparin 5000 units/ml) 5,000 units EVERY 8 HOURS SUBQ 07/23/18 06:00 08/22/18 05:59 07/25/18 06:45 Hydralazine HCl (Apresoline) 10 mg Q6H PRN ORAL SBP >160 07/23/18 00:15 08/22/18 00:14 Losartan Potassium (Cozaar) 100 mg DAILY ORAL 07/23/18 09:00 08/22/18 08:59 07/25/18 08:19 Ondansetron HCl (Zofran) 4 mg Q4H PRN IVP Nausea & Vomiting 07/23/18 00:15 08/22/18 00:14 Pantoprazole (Protonix) 40 mg ACBREAKFAST IVP 07/23/18 06:30 08/22/18 06:29 07/25/18 06:43 Quetiapine Fumarate (SEROquel) 12.5 mg EVERY 4 HOURS PRN ORAL agitation 07/24/18 14:00 08/23/18 13:59 Tramadol HCl (Ultram) 100 mg Q12H PRN ORAL Pain (4-10) 07/23/18 07:45 07/30/18 07:44 Zhane Amaya NP Jul 25, 2018 08:24
[2018-07-25] MEDS ORDERED: Lisinopril 10mg tab ORAL SCH (09:00)
[2018-07-25 12:00] VITALS: BP 128/56
--- NOTE | 2018-07-25 12:52 | Cardiac Electrophysiology PN ---
Assessment/Plan Assessment/Plan 1. Chest pain, that is atypical. The patient was confused, was ruled out for myocardial infarction, however, she has underlying left bundle-branch block. If she stabilizes neurologically by Friday, we will do a stress test for further evaluation. 2. Profound bradycardia with heart rate 40 as well as complete left bundle-branch block. Better after Coreg DCed 3. Hypertension. Continue amlodipine 10 mg and Losartan 100 mg daily. 4. Complete left bundle-branch block. 5. Anxiety. 6. Dementia. DW family and RN Subjective Subjective No arrhythmias on tele. In SR with LBBB. RN at bedside. Objective Last 24 Hour Vital Signs Date Time Temp Pulse Resp B/P (MAP) Pulse Ox O2 Delivery O2 Flow Rate FiO2 07/25/18 09:00 Room Air 07/25/18 08:19 159/69 07/25/18 08:18 55 159/69 07/25/18 08:00 55 07/25/18 08:00 97.4 55 20 159/69 (99) 98 97.4 07/25/18 04:00 98.3 75 20 156/58 (90) 99 98.3 07/25/18 04:00 52 07/25/18 00:00 63 07/25/18 00:00 98.1 63 20 134/54 (80) 98 98.1 07/24/18 21:00 Room Air 07/24/18 20:00 98.1 63 20 142/66 (91) 98 98.1 07/24/18 20:00 63 07/24/18 16:00 58 07/24/18 16:00 98.0 58 19 147/72 (97) 98 98.0 Intake and Output 07/24/18 07/25/18 19:00 07:00 Intake Total 550 ml Output Total 500 ml Balance 50 ml Other 550 ml Output Urine Total 500 ml # Voids 3 Laboratory Tests Test 07/25/18 06:00 White Blood Count 8.5 K/UL (4.8-10.8) Red Blood Count 4.04 M/UL (4.20-5.40) L Hemoglobin 12.0 G/DL (12.0-16.0) Hematocrit 36.0 % (37.0-47.0) L Mean Corpuscular Volume 89 FL (80-99) Mean Corpuscular Hemoglobin 29.8 PG (27.0-31.0) Mean Corpuscular Hemoglobin Concent 33.5 G/DL (32.0-36.0) Red Cell Distribution Width 12.2 % (11.6-14.8) Platelet Count 317 K/UL (150-450) Mean Platelet Volume 6.9 FL (6.5-10.1) Neutrophils (%) (Auto) 68.7 % (45.0-75.0) Lymphocytes (%) (Auto) 17.7 % (20.0-45.0) L Monocytes (%) (Auto) 12.5 % (1.0-10.0) H Eosinophils (%) (Auto) 0.5 % (0.0-3.0) Basophils (%) (Auto) 0.6 % (0.0-2.0) Sodium Level 137 MMOL/L (136-145) Potassium Level 3.5 MMOL/L (3.5-5.1) Chloride Level 102 MMOL/L (98-107) Carbon Dioxide Level 26 MMOL/L (21-32) Anion Gap 9 mmol/L (5-15) Blood Urea Nitrogen 12 mg/dL (7-18) Creatinine 0.6 MG/DL (0.55-1.30) Estimat Glomerular Filtration Rate mL/min (>60) Glucose Level 117 MG/DL (74-106) H Calcium Level 10.1 MG/DL (8.5-10.1) Objective HEAD AND NECK: No JVD or carotid bruit. LUNGS: Clear. CARDIOVASCULAR: Nl S1 and S2 with no gallop or murmur. ABDOMEN: Soft. EXTREMITIES: No pitting edema. Jose Juan Vaca MD Jul 25, 2018 12:52
[2018-07-25] MEDS ORDERED: Lexiscan 0.4mg/5ml syringe IV SCH (13:00)
[2018-07-25] MEDS: Miralax 17gm pkt ORAL PRN (13:27)
[2018-07-25 16:00] VITALS: BP 126/52
--- NOTE | 2018-07-25 18:13 | Internal Med Progress Note ---
Subjective Date of Service: Jul 25, 2018 Physician Name Manuel William Attending Physician Wolf Pineda MD Current Medications Medications (Trade) Dose Ordered Sig/Tona Route PRN Reason Start Time Stop Time Status Last Admin Dose Admin Acetaminophen (Tylenol) 650 mg Q6H PRN ORAL Mild Pain/Temp > 100.5 07/23/18 00:15 08/22/18 00:14 Alprazolam (Xanax) 0.5 mg Q12H PRN ORAL For Anxiety 07/23/18 00:15 07/30/18 00:14 07/23/18 03:22 Amlodipine Besylate (Norvasc) 10 mg DAILY ORAL 07/23/18 09:00 08/22/18 08:59 07/25/18 08:18 Atorvastatin Calcium (Lipitor) 10 mg BEDTIME ORAL 07/25/18 21:00 08/24/18 20:59 Citalopram Hydrobromide (celeXA) 20 mg DAILY ORAL 07/25/18 09:00 08/24/18 08:59 07/25/18 08:19 Docusate Sodium (Colace) 100 mg TWICE A DAY ORAL 07/23/18 09:00 08/22/18 08:59 07/25/18 17:16 Heparin Sodium (Porcine) (Heparin 5000 units/ml) 5,000 units EVERY 8 HOURS SUBQ 07/23/18 06:00 08/22/18 05:59 07/25/18 13:12 Hydralazine HCl (Apresoline) 10 mg Q6H PRN ORAL SBP >160 07/23/18 00:15 08/22/18 00:14 Losartan Potassium (Cozaar) 100 mg DAILY ORAL 07/23/18 09:00 08/22/18 08:59 07/25/18 08:19 Ondansetron HCl (Zofran) 4 mg Q4H PRN IVP Nausea & Vomiting 07/23/18 00:15 08/22/18 00:14 Pantoprazole (Protonix) 40 mg ACBREAKFAST IVP 07/23/18 06:30 08/22/18 06:29 07/25/18 06:43 Polyethylene Glycol (Miralax) 17 gm DAILYPRN PRN ORAL Constipation 07/25/18 13:15 08/24/18 13:14 07/25/18 13:27 Quetiapine Fumarate (SEROquel) 12.5 mg EVERY 4 HOURS PRN ORAL agitation 07/24/18 14:00 08/23/18 13:59 Regadenoson (Lexiscan) 0.4 mg ONCE IV 07/25/18 13:00 07/27/18 23:59 Tramadol HCl (Ultram) 100 mg Q12H PRN ORAL Pain (4-10) 07/23/18 07:45 07/30/18 07:44 Allergies: Coded Allergies: IODINE (Verified Allergy, Unknown, 07/23/18) PENICILLINS (Verified Allergy, Unknown, 07/23/18) SULFA (SULFONAMIDE ANTIBIOTICS) (Verified Allergy, Unknown, 07/23/18) ROS Limited/Unobtainable: No Constitutional: Reports: no symptoms HEENT: Reports: no symptoms Cardiovascular: Reports: chest pain Respiratory: Reports: no symptoms Gastrointestinal/Abdominal: Reports: no symptoms Genitourinary: Reports: no symptoms Neurologic/Psychiatric: Reports: no symptoms Subjective 78 YO F admitted with chief complaint of chest pain. Now bradycardia. Cover for Int Med-Dr Pineda Objective Last Vital Signs Date Time Temp Pulse Resp B/P (MAP) Pulse Ox O2 Delivery O2 Flow Rate FiO2 07/25/18 16:00 98.0 64 20 126/52 (76) 100 98.0 07/25/18 09:00 Room Air Laboratory Tests Test 07/25/18 06:00 White Blood Count 8.5 K/UL (4.8-10.8) Red Blood Count 4.04 M/UL (4.20-5.40) L Hemoglobin 12.0 G/DL (12.0-16.0) Hematocrit 36.0 % (37.0-47.0) L Mean Corpuscular Volume 89 FL (80-99) Mean Corpuscular Hemoglobin 29.8 PG (27.0-31.0) Mean Corpuscular Hemoglobin Concent 33.5 G/DL (32.0-36.0) Red Cell Distribution Width 12.2 % (11.6-14.8) Platelet Count 317 K/UL (150-450) Mean Platelet Volume 6.9 FL (6.5-10.1) Neutrophils (%) (Auto) 68.7 % (45.0-75.0) Lymphocytes (%) (Auto) 17.7 % (20.0-45.0) L Monocytes (%) (Auto) 12.5 % (1.0-10.0) H Eosinophils (%) (Auto) 0.5 % (0.0-3.0) Basophils (%) (Auto) 0.6 % (0.0-2.0) Sodium Level 137 MMOL/L (136-145) Potassium Level 3.5 MMOL/L (3.5-5.1) Chloride Level 102 MMOL/L (98-107) Carbon Dioxide Level 26 MMOL/L (21-32) Anion Gap 9 mmol/L (5-15) Blood Urea Nitrogen 12 mg/dL (7-18) Creatinine 0.6 MG/DL (0.55-1.30) Estimat Glomerular Filtration Rate mL/min (>60) Glucose Level 117 MG/DL (74-106) H Calcium Level 10.1 MG/DL (8.5-10.1) Intake and Output 07/24/18 07/25/18 19:00 07:00 Intake Total 550 ml Output Total 500 ml Balance 50 ml Other 550 ml Output Urine Total 500 ml # Voids 3 Objective General Appearance: WD/WN, no apparent distress, alert EENT: PERRL/EOMI, normal ENT inspection, TMs normal Neck: non-tender, normal alignment, supple Cardiovascular: normal peripheral pulses, regular rhythm, no gallop/murmur, no JVD, bradycardia Respiratory/Chest: chest wall non-tender, lungs clear, normal breath sounds, no respiratory distress, no accessory muscle use Abdomen: normal bowel sounds, non tender, soft, no organomegaly, no mass Extremities: normal range of motion, non-tender Neurologic: parts interpreter II-XII grossly normal, no motor/sensory deficits Skin: normal pigmentation, warm/dry Assessment/Plan Problem List: (1) Cervical stenosis of spinal canal (2) Chest pain Assessment & Plan: Ruled out for Acute AK by troponin. See cardiology note (3) Hypertension (4) LBBB (left bundle branch block) (5) Alzheimer's dementia (6) Bradycardia Assessment & Plan: Due to LBBB-see cardiology note. D/C Manuel Bernal MD Jul 25, 2018 18:13
[2018-07-25 20:00] VITALS: BP 131/70
[2018-07-26] VITALS: BP 155/78
[2018-07-26 04:00] VITALS: BP 154/76
[2018-07-26] MEDS: Pantoprazole Inj IVP SCH (05:51)
[2018-07-26] MEDS: Heparin 5000 units/ml inj SUBQ SCH ×3 (05:52→21:22)
[2018-07-26 08:00] VITALS: BP 131/92
--- NOTE | 2018-07-26 08:54 | Pulmonology Progress Note ---
Assessment/Plan Assessment/Plan ASSESSMENT Atypical chest pain , ( ruled out for AC)S complete LBBB bradycardia HTN moderate pulmonary HTN hypo K Alzheimer dementia cervical spine stenosis with history of neck surgery hyperlipidemia twitching episodes recurrent, possible partial seizures PLAN OF CARE Tele serial troponin negative EKG revealed no acute ischemic changes patient was r/o for acute ME ECHO with pEF 55-60% and RVSP of 55 , no evidence of WMA cardio follows off BB HR better BP management with multiple regimen of anti-HTN CCB and ARB, no blocking agents stress test in am pain management addressed K replaced , stable lipid panel with elevated TC and LDL, started statin educated on cardiac low cholesterol diet pain management addressed DVT/ GI prophylaxis PT/OT neuro eval pending supportive care case discussed and evaluated by supervising physician Subjective Allergies: Coded Allergies: IODINE (Verified Allergy, Unknown, 07/23/18) PENICILLINS (Verified Allergy, Unknown, 07/23/18) SULFA (SULFONAMIDE ANTIBIOTICS) (Verified Allergy, Unknown, 07/23/18) Subjective denies chest pain, SOB pulse oz stable on RA on tele HR stable episode of twitching while sitting in the chair, family reported prior episodes of twitching as well Objective Last 24 Hour Vital Signs Date Time Temp Pulse Resp B/P (MAP) Pulse Ox O2 Delivery O2 Flow Rate FiO2 07/26/18 04:00 58 07/26/18 04:00 98.0 70 21 154/76 (102) 97 98.0 07/26/18 00:00 98.2 73 24 155/78 (103) 96 98.2 07/26/18 00:00 60 07/25/18 21:00 Room Air 07/25/18 20:00 98.4 66 20 131/70 (90) 100 98.4 07/25/18 20:00 65 07/25/18 16:00 98.0 64 20 126/52 (76) 100 98.0 07/25/18 16:00 65 07/25/18 12:00 60 07/25/18 12:00 97.6 60 20 128/56 (80) 98 97.6 07/25/18 09:00 Room Air Intake and Output 07/25/18 07/26/18 19:00 07:00 Intake Total 240 ml Balance 240 ml Intake Oral 240 ml # Voids 1 Objective General Appearance: no acute distress, other - awake, responsive, HEENT: normocephalic, atraumatic, anicteric Respiratory/Chest: lungs clear, no respiratory distress, no accessory muscle use Cardiovascular: no gallop/murmur, SR and LBBB on tele Abdomen: normal bowel sounds, soft, non tender, non distended Neurologic/Psychiatric: alert, responsive Musculoskeletal: atrophy - BLE Current Medications Medications (Trade) Dose Ordered Sig/Tona Route PRN Reason Start Time Stop Time Status Last Admin Dose Admin Acetaminophen (Tylenol) 650 mg Q6H PRN ORAL Mild Pain/Temp > 100.5 07/23/18 00:15 08/22/18 00:14 Alprazolam (Xanax) 0.5 mg Q12H PRN ORAL For Anxiety 07/23/18 00:15 07/30/18 00:14 07/23/18 03:22 Amlodipine Besylate (Norvasc) 10 mg DAILY ORAL 07/23/18 09:00 08/22/18 08:59 07/25/18 08:18 Atorvastatin Calcium (Lipitor) 10 mg BEDTIME ORAL 07/25/18 21:00 08/24/18 20:59 07/25/18 21:42 Citalopram Hydrobromide (celeXA) 20 mg DAILY ORAL 07/25/18 09:00 08/24/18 08:59 07/25/18 08:19 Docusate Sodium (Colace) 100 mg TWICE A DAY ORAL 07/23/18 09:00 08/22/18 08:59 07/25/18 17:16 Heparin Sodium (Porcine) (Heparin 5000 units/ml) 5,000 units EVERY 8 HOURS SUBQ 07/23/18 06:00 08/22/18 05:59 07/26/18 05:52 Hydralazine HCl (Apresoline) 10 mg Q6H PRN ORAL SBP >160 07/23/18 00:15 08/22/18 00:14 Losartan Potassium (Cozaar) 100 mg DAILY ORAL 07/23/18 09:00 08/22/18 08:59 07/25/18 08:19 Ondansetron HCl (Zofran) 4 mg Q4H PRN IVP Nausea & Vomiting 07/23/18 00:15 08/22/18 00:14 Pantoprazole (Protonix) 40 mg ACBREAKFAST IVP 07/23/18 06:30 08/22/18 06:29 07/26/18 05:51 Polyethylene Glycol (Miralax) 17 gm DAILYPRN PRN ORAL Constipation 07/25/18 13:15 08/24/18 13:14 07/25/18 13:27 Quetiapine Fumarate (SEROquel) 12.5 mg EVERY 4 HOURS PRN ORAL agitation 07/24/18 14:00 08/23/18 13:59 Regadenoson (Lexiscan) 0.4 mg ONCE IV 07/25/18 13:00 07/27/18 23:59 Tramadol HCl (Ultram) 100 mg Q12H PRN ORAL Pain (4-10) 07/23/18 07:45 07/30/18 07:44 Zhane Amaya CASER UP Jul 26, 2018 08:54
[2018-07-26] MEDS: Docusate 100mg cap ORAL SCH ×2 (09:04→17:18)
[2018-07-26] MEDS: Citalopram Hydrobromide 10mg Tab ORAL SCH (09:05)
[2018-07-26] MEDS: Losartan 50mg tab ORAL SCH (09:05)
[2018-07-26 12:00] VITALS: BP 140/66
[2018-07-26] MEDS: Miralax 17gm pkt ORAL PRN (13:39)
--- NOTE | 2018-07-26 14:09 | Internal Med Progress Note ---
Subjective Date of Service: Jul 26, 2018 Physician Name William,Manuel Attending Physician Wolf Pineda MD Current Medications Medications (Trade) Dose Ordered Sig/Tona Route PRN Reason Start Time Stop Time Status Last Admin Dose Admin Acetaminophen (Tylenol) 650 mg Q6H PRN ORAL Mild Pain/Temp > 100.5 07/23/18 00:15 08/22/18 00:14 Alprazolam (Xanax) 0.5 mg Q12H PRN ORAL For Anxiety 07/23/18 00:15 07/30/18 00:14 07/23/18 03:22 Amlodipine Besylate (Norvasc) 10 mg DAILY ORAL 07/23/18 09:00 08/22/18 08:59 07/26/18 09:04 Atorvastatin Calcium (Lipitor) 10 mg BEDTIME ORAL 07/25/18 21:00 08/24/18 20:59 07/25/18 21:42 Citalopram Hydrobromide (celeXA) 20 mg DAILY ORAL 07/25/18 09:00 08/24/18 08:59 07/26/18 09:05 Docusate Sodium (Colace) 100 mg TWICE A DAY ORAL 07/23/18 09:00 08/22/18 08:59 07/26/18 09:04 Heparin Sodium (Porcine) (Heparin 5000 units/ml) 5,000 units EVERY 8 HOURS SUBQ 07/23/18 06:00 08/22/18 05:59 07/26/18 13:46 Hydralazine HCl (Apresoline) 10 mg Q6H PRN ORAL SBP >160 07/23/18 00:15 08/22/18 00:14 Losartan Potassium (Cozaar) 100 mg DAILY ORAL 07/23/18 09:00 08/22/18 08:59 07/26/18 09:05 Ondansetron HCl (Zofran) 4 mg Q4H PRN IVP Nausea & Vomiting 07/23/18 00:15 08/22/18 00:14 Pantoprazole (Protonix) 40 mg ACBREAKFAST IVP 07/23/18 06:30 08/22/18 06:29 07/26/18 05:51 Polyethylene Glycol (Miralax) 17 gm DAILYPRN PRN ORAL Constipation 07/25/18 13:15 08/24/18 13:14 07/26/18 13:39 Quetiapine Fumarate (SEROquel) 12.5 mg EVERY 4 HOURS PRN ORAL agitation 07/24/18 14:00 08/23/18 13:59 Regadenoson (Lexiscan) 0.4 mg ONCE IV 07/25/18 13:00 07/27/18 23:59 Tramadol HCl (Ultram) 100 mg Q12H PRN ORAL Pain (4-10) 07/23/18 07:45 07/30/18 07:44 Allergies: Coded Allergies: IODINE (Verified Allergy, Unknown, 07/23/18) PENICILLINS (Verified Allergy, Unknown, 07/23/18) SULFA (SULFONAMIDE ANTIBIOTICS) (Verified Allergy, Unknown, 07/23/18) Subjective 78 YO F admitted with chief complaint of chest pain. Now bradycardia. Cover for Int Med-Dr Pineda. Await stress test Objective Last Vital Signs Date Time Temp Pulse Resp B/P (MAP) Pulse Ox O2 Delivery O2 Flow Rate FiO2 07/26/18 12:00 97.5 56 18 140/66 (90) 92 97.5 07/26/18 09:00 Room Air Intake and Output 07/25/18 07/26/18 19:00 07:00 Intake Total 240 ml Balance 240 ml Intake Oral 240 ml # Voids 1 Objective General Appearance: WD/WN, no apparent distress, alert EENT: PERRL/EOMI, normal ENT inspection, TMs normal Neck: non-tender, normal alignment, supple Cardiovascular: normal peripheral pulses, regular rhythm, no gallop/murmur, no JVD, bradycardia Respiratory/Chest: chest wall non-tender, lungs clear, normal breath sounds, no respiratory distress, no accessory muscle use Abdomen: normal bowel sounds, non tender, soft, no organomegaly, no mass Extremities: normal range of motion, non-tender Neurologic: medical administrative specialist II-XII grossly normal, no motor/sensory deficits Skin: normal pigmentation, warm/dry Assessment/Plan Problem List: (1) Cervical stenosis of spinal canal (2) Chest pain Assessment & Plan: Await stress test on 07/27/18. Ruled out for Acute MS by troponin. See cardiology note (3) Hypertension (4) LBBB (left bundle branch block) (5) Alzheimer's dementia (6) Bradycardia Assessment & Plan: Due to LBBB-see cardiology note. D/C coreg Status: unchanged Manuel William MD Jul 26, 2018 14:09
--- NOTE | 2018-07-26 14:54 | Cardiac Electrophysiology PN ---
Assessment/Plan Assessment/Plan 1. Chest pain, that is atypical. The patient was confused. Was ruled out for myocardial infarction, however, she has underlying left bundle-branch block. Will schedule stress test for further evaluation. 2. Profound bradycardia with heart rate 40 as well as complete left bundle-branch block. Better after Coreg DCed 3. Hypertension. Continue amlodipine 10 mg and Losartan 100 mg daily. 4. Complete left bundle-branch block. 5. Anxiety. 6. Dementia. DW family and RN Subjective Subjective No arrhythmias on tele. In SR with LBBB. Comfortable in NAD Objective Last 24 Hour Vital Signs Date Time Temp Pulse Resp B/P (MAP) Pulse Ox O2 Delivery O2 Flow Rate FiO2 07/26/18 12:00 97.5 56 18 140/66 (90) 92 97.5 07/26/18 12:00 57 07/26/18 09:05 131/92 07/26/18 09:04 61 131/92 07/26/18 09:00 Room Air 07/26/18 08:00 98.2 61 21 131/92 (105) 96 98.2 07/26/18 08:00 56 07/26/18 04:00 58 07/26/18 04:00 98.0 70 21 154/76 (102) 97 98.0 07/26/18 00:00 98.2 73 24 155/78 (103) 96 98.2 07/26/18 00:00 60 07/25/18 21:00 Room Air 07/25/18 20:00 98.4 66 20 131/70 (90) 100 98.4 07/25/18 20:00 65 07/25/18 16:00 98.0 64 20 126/52 (76) 100 98.0 07/25/18 16:00 65 Intake and Output 07/25/18 07/26/18 19:00 07:00 Intake Total 240 ml Balance 240 ml Intake Oral 240 ml # Voids 1 Objective HEAD AND NECK: No JVD or carotid bruit. LUNGS: Clear. CARDIOVASCULAR: Nl S1 and S2 with no gallop or murmur. ABDOMEN: Soft. EXTREMITIES: No pitting edema. Jose Juan Vaca MD Jul 26, 2018 14:54
[2018-07-26] MEDS ORDERED: Lexiscan 0.4mg/5ml syringe IV SCH (15:00)
[2018-07-26] MEDS ORDERED: Fleet's Enema 133ml RECTAL PRN (15:15)
[2018-07-26 16:00] VITALS: BP 157/93
[2018-07-26 20:00] VITALS: BP 147/76
[2018-07-27] VITALS: BP 136/57
[2018-07-27 04:00] VITALS: BP 159/70
[2018-07-27] MEDS: Heparin 5000 units/ml inj SUBQ SCH ×3 (05:51→21:39)
[2018-07-27 08:00] VITALS: BP 158/62
[2018-07-27] MEDS: Citalopram Hydrobromide 10mg Tab ORAL SCH (09:33)
[2018-07-27] MEDS: Docusate 100mg cap ORAL SCH ×2 (09:34→17:24)
[2018-07-27] MEDS: Losartan 50mg tab ORAL SCH (09:37)
[2018-07-27 11:05] LABS: BASOPHILS % (AUTO) 1.2 % (0.0-2.0); EOSINOPHILS % (AUTO) 1.5 % (0.0-3.0); HEMATOCRIT 39.3 % (37.0-47.0); LYMPHOCYTES % (AUTO) 22.8 % (20.0-45.0); MEAN CORPUSCULAR VOLUME 89 FL (80-99); MONOCYTES % (AUTO) 9.1 % (1.0-10.0); NEUTROPHILS % (AUTO) 65.4 % (45.0-75.0); PLATELET COUNT 358 K/UL (150-450); RED BLOOD COUNT 4.41 M/UL (4.20-5.40); RED CELL DISTRIBUTION WIDTH 11.6 % (11.6-14.8); WHITE BLOOD COUNT 6.1 K/UL (4.8-10.8)
[2018-07-27 11:06] LABS: ANION GAP 9 mmol/L (5-15); BLOOD UREA NITROGEN 13 mg/dL (7-18); CALCIUM 10.2 MG/DL (8.5-10.1); CARBON DIOXIDE 26 MMOL/L (21-32); CHLORIDE 102 MMOL/L (98-107); CREATININE 0.5 MG/DL (0.55-1.30); POTASSIUM 3.9 MMOL/L (3.5-5.1); SODIUM 137 MMOL/L (136-145)
--- NOTE | 2018-07-27 11:26 | Pulmonology Progress Note ---
Assessment/Plan Assessment/Plan ASSESSMENT Atypical chest pain , ( ruled out for ACS0, probably due to anxiety complete LBBB bradycardia HTN moderate pulmonary HTN hypo K Alzheimer dementia cervical spine stenosis with history of neck surgery hyperlipidemia twitching episodes recurrent, possible partial seizures anxiety PLAN OF CARE Tele serial troponin negative EKG revealed no acute ischemic changes patient was r/o for acute NV ECHO with pEF 55-60% and RVSP of 55 , no evidence of WMA cardio follows off BB HR better BP management with multiple regimen of anti-HTN CCB and ARB, no blocking agents stress test this am pain management addressed e/lytes corrected as needed lipid panel with elevated TC and LDL, started on statin educated on cardiac low cholesterol diet pain management addressed DVT/ GI prophylaxis PT/OT neuro eval pending supportive care case discussed and evaluated by supervising physician Subjective Allergies: Coded Allergies: IODINE (Verified Allergy, Unknown, 07/23/18) PENICILLINS (Verified Allergy, Unknown, 07/23/18) SULFA (SULFONAMIDE ANTIBIOTICS) (Verified Allergy, Unknown, 07/23/18) Subjective denies chest pain, SOB pulse oz stable on RA on tele HR stable stress test today Objective Last 24 Hour Vital Signs Date Time Temp Pulse Resp B/P (MAP) Pulse Ox O2 Delivery O2 Flow Rate FiO2 07/27/18 09:38 53 158/62 07/27/18 09:37 158/62 07/27/18 04:00 52 07/27/18 04:00 97.9 55 18 159/70 (99) 100 97.9 07/27/18 00:00 61 07/27/18 00:00 98.2 59 18 136/57 (83) 96 98.2 07/26/18 21:00 Room Air 07/26/18 20:00 98.4 63 18 147/76 (99) 95 98.4 07/26/18 20:00 74 07/26/18 16:00 97.8 68 18 157/93 (114) 100 97.8 07/26/18 16:00 61 07/26/18 12:00 97.5 56 18 140/66 (90) 92 97.5 07/26/18 12:00 57 Intake and Output 07/26/18 07/27/18 19:00 07:00 Intake Total 480 ml Balance 480 ml Intake Oral 480 ml # Voids 2 2 # Bowel Movements 1 Objective General Appearance: no acute distress, other - awake, responsive, HEENT: normocephalic, atraumatic, anicteric Respiratory/Chest: lungs clear, no respiratory distress, no accessory muscle use Cardiovascular: no gallop/murmur, SR and LBBB on tele Abdomen: normal bowel sounds, soft, non tender, non distended Neurologic/Psychiatric: alert, responsive Musculoskeletal: atrophy - BLE Laboratory Tests 07/27/18 10:20: White Blood Count 6.1, Red Blood Count 4.41, Hemoglobin 13.0, Hematocrit 39.3, Mean Corpuscular Volume 89, Mean Corpuscular Hemoglobin 29.4, Mean Corpuscular Hemoglobin Concent 33.0, Red Cell Distribution Width 11.6, Platelet Count 358, Mean Platelet Volume 6.3L, Neutrophils (%) (Auto) 65.4, Lymphocytes (%) (Auto) 22.8, Monocytes (%) (Auto) 9.1, Eosinophils (%) (Auto) 1.5, Basophils (%) (Auto ) 1.2, Sodium Level 137, Potassium Level 3.9, Chloride Level 102, Carbon Dioxide Level 26, Anion Gap 9, Blood Urea Nitrogen 13, Creatinine 0.5L, Estimat Glomerular Filtration Rate , Glucose Level 108H, Calcium Level 10.2H Current Medications Medications (Trade) Dose Ordered Sig/Tona Route PRN Reason Start Time Stop Time Status Last Admin Dose Admin Acetaminophen (Tylenol) 650 mg Q6H PRN ORAL Mild Pain/Temp > 100.5 07/23/18 00:15 08/22/18 00:14 Alprazolam (Xanax) 0.5 mg Q12H PRN ORAL For Anxiety 07/23/18 00:15 07/30/18 00:14 07/23/18 03:22 Amlodipine Besylate (Norvasc) 10 mg DAILY ORAL 07/23/18 09:00 08/22/18 08:59 07/27/18 09:38 Atorvastatin Calcium (Lipitor) 10 mg BEDTIME ORAL 07/25/18 21:00 08/24/18 20:59 07/26/18 21:20 Citalopram Hydrobromide (celeXA) 20 mg DAILY ORAL 07/25/18 09:00 08/24/18 08:59 07/27/18 09:33 Docusate Sodium (Colace) 100 mg TWICE A DAY ORAL 07/23/18 09:00 08/22/18 08:59 07/27/18 09:34 Heparin Sodium (Porcine) (Heparin 5000 units/ml) 5,000 units EVERY 8 HOURS SUBQ 07/23/18 06:00 08/22/18 05:59 07/27/18 05:51 Hydralazine HCl (Apresoline) 10 mg Q6H PRN ORAL SBP >160 07/23/18 00:15 08/22/18 00:14 Lansoprazole (Prevacid) 30 mg ACBREAKFAST ORAL 07/27/18 06:30 08/26/18 06:29 07/27/18 05:50 Losartan Potassium (Cozaar) 100 mg DAILY ORAL 07/23/18 09:00 08/22/18 08:59 07/27/18 09:37 Ondansetron HCl (Zofran) 4 mg Q4H PRN IVP Nausea & Vomiting 07/23/18 00:15 08/22/18 00:14 Polyethylene Glycol (Miralax) 17 gm DAILYPRN PRN ORAL Constipation 07/25/18 13:15 08/24/18 13:14 07/26/18 13:39 Quetiapine Fumarate (SEROquel) 12.5 mg EVERY 4 HOURS PRN ORAL agitation 07/24/18 14:00 08/23/18 13:59 Regadenoson (Lexiscan) 0.4 mg ONCE IV 07/25/18 13:00 07/27/18 23:59 Regadenoson (Lexiscan) 0.4 mg ONCE IV 07/26/18 15:00 07/28/18 23:59 Sodium Phosphate (Fleet's Sodium Phosl Enema) 133 ml PRN PRN RECTAL Constipation 07/26/18 15:15 08/25/18 15:14 Tramadol HCl (Ultram) 100 mg Q12H PRN ORAL Pain (4-10) 07/23/18 07:45 07/30/18 07:44 Zhane Amaya [employer] SERVICE TECHNICIAN Jul 27, 2018 11:26
--- NOTE | 2018-07-27 11:38 | General Progress Note ---
Assessment/Plan Status: stable Assessment/Plan encephalopathy due to [facility] mdd celexa seroquel prn provided ro/st Subjective Date patient seen: Jul 27, 2018 Neurologic/Psychiatric: Reports: anxiety, depressed Allergies: Coded Allergies: IODINE (Verified Allergy, Unknown, 07/23/18) PENICILLINS (Verified Allergy, Unknown, 07/23/18) SULFA (SULFONAMIDE ANTIBIOTICS) (Verified Allergy, Unknown, 07/23/18) Objective Last 24 Hour Vital Signs Date Time Temp Pulse Resp B/P (MAP) Pulse Ox O2 Delivery O2 Flow Rate FiO2 07/27/18 09:38 53 158/62 07/27/18 09:37 158/62 07/27/18 04:00 52 07/27/18 04:00 97.9 55 18 159/70 (99) 100 97.9 07/27/18 00:00 61 07/27/18 00:00 98.2 59 18 136/57 (83) 96 98.2 07/26/18 21:00 Room Air 07/26/18 20:00 98.4 63 18 147/76 (99) 95 98.4 07/26/18 20:00 74 07/26/18 16:00 97.8 68 18 157/93 (114) 100 97.8 07/26/18 16:00 61 07/26/18 12:00 97.5 56 18 140/66 (90) 92 97.5 07/26/18 12:00 57 Intake and Output 07/26/18 07/27/18 19:00 07:00 Intake Total 480 ml Balance 480 ml Intake Oral 480 ml # Voids 2 2 # Bowel Movements 1 Laboratory Tests 07/27/18 10:20: White Blood Count 6.1, Red Blood Count 4.41, Hemoglobin 13.0, Hematocrit 39.3, Mean Corpuscular Volume 89, Mean Corpuscular Hemoglobin 29.4, Mean Corpuscular Hemoglobin Concent 33.0, Red Cell Distribution Width 11.6, Platelet Count 358, Mean Platelet Volume 6.3L, Neutrophils (%) (Auto) 65.4, Lymphocytes (%) (Auto) 22.8, Monocytes (%) (Auto) 9.1, Eosinophils (%) (Auto) 1.5, Basophils (%) (Auto ) 1.2, Sodium Level 137, Potassium Level 3.9, Chloride Level 102, Carbon Dioxide Level 26, Anion Gap 9, Blood Urea Nitrogen 13, Creatinine 0.5L, Estimat Glomerular Filtration Rate , Glucose Level 108H, Calcium Level 10.2H Height (Feet): 5 Height (Inches): 4.00 Weight (Pounds): 122 General Appearance: no apparent distress, alert Neurologic: depressed affect Sarah Beth Hare MD Jul 27, 2018 11:38
--- NOTE | 2018-07-27 11:38 | Psych Consult Progress Note ---
Psych Consult Progress Note Consult 07/26/18 encephalopathy due to [facility] mdd celexa seroquel prn provided ro/st Vital Signs Last 24 Hour Vital Signs Date Time Temp Pulse Resp B/P (MAP) Pulse Ox O2 Delivery O2 Flow Rate FiO2 07/27/18 09:38 53 158/62 07/27/18 09:37 158/62 07/27/18 04:00 52 07/27/18 04:00 97.9 55 18 159/70 (99) 100 97.9 07/27/18 00:00 61 07/27/18 00:00 98.2 59 18 136/57 (83) 96 98.2 07/26/18 21:00 Room Air 07/26/18 20:00 98.4 63 18 147/76 (99) 95 98.4 07/26/18 20:00 74 07/26/18 16:00 97.8 68 18 157/93 (114) 100 97.8 07/26/18 16:00 61 07/26/18 12:00 97.5 56 18 140/66 (90) 92 97.5 07/26/18 12:00 57 Labs Laboratory Tests Test 07/27/18 10:20 White Blood Count 6.1 K/UL (4.8-10.8) Red Blood Count 4.41 M/UL (4.20-5.40) Hemoglobin 13.0 G/DL (12.0-16.0) Hematocrit 39.3 % (37.0-47.0) Mean Corpuscular Volume 89 FL (80-99) Mean Corpuscular Hemoglobin 29.4 PG (27.0-31.0) Mean Corpuscular Hemoglobin Concent 33.0 G/DL (32.0-36.0) Red Cell Distribution Width 11.6 % (11.6-14.8) Platelet Count 358 K/UL (150-450) Mean Platelet Volume 6.3 FL (6.5-10.1) L Neutrophils (%) (Auto) 65.4 % (45.0-75.0) Lymphocytes (%) (Auto) 22.8 % (20.0-45.0) Monocytes (%) (Auto) 9.1 % (1.0-10.0) Eosinophils (%) (Auto) 1.5 % (0.0-3.0) Basophils (%) (Auto) 1.2 % (0.0-2.0) Sodium Level 137 MMOL/L (136-145) Potassium Level 3.9 MMOL/L (3.5-5.1) Chloride Level 102 MMOL/L (98-107) Carbon Dioxide Level 26 MMOL/L (21-32) Anion Gap 9 mmol/L (5-15) Blood Urea Nitrogen 13 mg/dL (7-18) Creatinine 0.5 MG/DL (0.55-1.30) L Estimat Glomerular Filtration Rate mL/min (>60) Glucose Level 108 MG/DL (74-106) H Calcium Level 10.2 MG/DL (8.5-10.1) H Medications Current Medications Medications (Trade) Dose Ordered Sig/Tona Route PRN Reason Start Time Stop Time Status Last Admin Dose Admin Acetaminophen (Tylenol) 650 mg Q6H PRN ORAL Mild Pain/Temp > 100.5 07/23/18 00:15 08/22/18 00:14 Alprazolam (Xanax) 0.5 mg Q12H PRN ORAL For Anxiety 07/23/18 00:15 07/30/18 00:14 07/23/18 03:22 Amlodipine Besylate (Norvasc) 10 mg DAILY ORAL 07/23/18 09:00 08/22/18 08:59 07/27/18 09:38 Atorvastatin Calcium (Lipitor) 10 mg BEDTIME ORAL 07/25/18 21:00 08/24/18 20:59 07/26/18 21:20 Citalopram Hydrobromide (celeXA) 20 mg DAILY ORAL 07/25/18 09:00 08/24/18 08:59 07/27/18 09:33 Docusate Sodium (Colace) 100 mg TWICE A DAY ORAL 07/23/18 09:00 08/22/18 08:59 07/27/18 09:34 Heparin Sodium (Porcine) (Heparin 5000 units/ml) 5,000 units EVERY 8 HOURS SUBQ 07/23/18 06:00 08/22/18 05:59 07/27/18 05:51 Hydralazine HCl (Apresoline) 10 mg Q6H PRN ORAL SBP >160 07/23/18 00:15 08/22/18 00:14 Lansoprazole (Prevacid) 30 mg ACBREAKFAST ORAL 07/27/18 06:30 08/26/18 06:29 07/27/18 05:50 Losartan Potassium (Cozaar) 100 mg DAILY ORAL 07/23/18 09:00 08/22/18 08:59 07/27/18 09:37 Ondansetron HCl (Zofran) 4 mg Q4H PRN IVP Nausea & Vomiting 07/23/18 00:15 08/22/18 00:14 Polyethylene Glycol (Miralax) 17 gm DAILYPRN PRN ORAL Constipation 07/25/18 13:15 08/24/18 13:14 07/26/18 13:39 Quetiapine Fumarate (SEROquel) 12.5 mg EVERY 4 HOURS PRN ORAL agitation 07/24/18 14:00 08/23/18 13:59 Regadenoson (Lexiscan) 0.4 mg ONCE IV 07/25/18 13:00 07/27/18 23:59 Regadenoson (Lexiscan) 0.4 mg ONCE IV 07/26/18 15:00 07/28/18 23:59 Sodium Phosphate (Fleet's Sodium Phosl Enema) 133 ml PRN PRN RECTAL Constipation 07/26/18 15:15 08/25/18 15:14 Tramadol HCl (Ultram) 100 mg Q12H PRN ORAL Pain (4-10) 07/23/18 07:45 07/30/18 07:44 Sarah Beth Hare MD Jul 27, 2018 11:38
[2018-07-27 12:00] VITALS: BP 126/51
--- NOTE | 2018-07-27 13:04 | Cardiac Electrophysiology PN ---
Assessment/Plan Assessment/Plan 1. Atypical Chest pain. The patient was ruled out for myocardial infarction, however, she has underlying left bundle-branch block. Nuclear stress test today pending 2. Profound bradycardia with heart rate 40 as well as complete left bundle-branch block. Better after Coreg DCed 3. Hypertension. Continue amlodipine 10 mg and Losartan 100 mg daily. 4. Complete left bundle-branch block. 5. Anxiety. 6. Dementia. RIAN RN Subjective Subjective No arrhythmias on tele. In SR with LBBB. Awaiting nuclear stress test. Objective Last 24 Hour Vital Signs Date Time Temp Pulse Resp B/P (MAP) Pulse Ox O2 Delivery O2 Flow Rate FiO2 07/27/18 09:38 53 158/62 07/27/18 09:37 158/62 07/27/18 09:00 Room Air 07/27/18 08:00 97.3 53 18 158/62 (94) 100 97.3 07/27/18 04:00 52 07/27/18 04:00 97.9 55 18 159/70 (99) 100 97.9 07/27/18 00:00 61 07/27/18 00:00 98.2 59 18 136/57 (83) 96 98.2 07/26/18 21:00 Room Air 07/26/18 20:00 98.4 63 18 147/76 (99) 95 98.4 07/26/18 20:00 74 07/26/18 16:00 97.8 68 18 157/93 (114) 100 97.8 07/26/18 16:00 61 Intake and Output 07/26/18 07/27/18 19:00 07:00 Intake Total 480 ml Balance 480 ml Intake Oral 480 ml # Voids 2 2 # Bowel Movements 1 Laboratory Tests Test 07/27/18 10:20 White Blood Count 6.1 K/UL (4.8-10.8) Red Blood Count 4.41 M/UL (4.20-5.40) Hemoglobin 13.0 G/DL (12.0-16.0) Hematocrit 39.3 % (37.0-47.0) Mean Corpuscular Volume 89 FL (80-99) Mean Corpuscular Hemoglobin 29.4 PG (27.0-31.0) Mean Corpuscular Hemoglobin Concent 33.0 G/DL (32.0-36.0) Red Cell Distribution Width 11.6 % (11.6-14.8) Platelet Count 358 K/UL (150-450) Mean Platelet Volume 6.3 FL (6.5-10.1) L Neutrophils (%) (Auto) 65.4 % (45.0-75.0) Lymphocytes (%) (Auto) 22.8 % (20.0-45.0) Monocytes (%) (Auto) 9.1 % (1.0-10.0) Eosinophils (%) (Auto) 1.5 % (0.0-3.0) Basophils (%) (Auto) 1.2 % (0.0-2.0) Sodium Level 137 MMOL/L (136-145) Potassium Level 3.9 MMOL/L (3.5-5.1) Chloride Level 102 MMOL/L (98-107) Carbon Dioxide Level 26 MMOL/L (21-32) Anion Gap 9 mmol/L (5-15) Blood Urea Nitrogen 13 mg/dL (7-18) Creatinine 0.5 MG/DL (0.55-1.30) L Estimat Glomerular Filtration Rate mL/min (>60) Glucose Level 108 MG/DL (74-106) H Calcium Level 10.2 MG/DL (8.5-10.1) H Objective HEAD AND NECK: No JVD or carotid bruit. LUNGS: Clear. CARDIOVASCULAR: Nl S1 and S2 with no gallop or murmur. ABDOMEN: Soft. EXTREMITIES: No pitting edema. Jose Juan Vaca MD Jul 27, 2018 13:04
--- NOTE | 2018-07-27 15:43 | Diagnostic Imaging Report ---
Indications: Chest pain Technique: Single day single isotope protocol utilized. Initially, resting images obtained using IV administration 10.9 millicuries 99M technetium Myoview. Subsequently, patient underwent lexiscan stress testing. See cardiology report for details. During Lexiscan infusion, IV administration 30.8 mCi 99 M technetium Myoview. SPECT and planar images obtained. SPECT images gated to 8 phases of the cardiac cycle were also obtained, and reformatted into cine images for evaluation of ejection fraction. Comparison: none Findings: Per cardiology report, patient experienced no symptoms. Per cardiology report, resting EKG demonstrates normal sinus rhythm. Per cardiology report describes no ST changes during infusion. On imaging, no fixed nor reversible post stress perfusion defects are demonstrated. Calculated post stress ejection fraction 56%. No focal wall motion abnormality Impression: Nonischemic clinical response to pharmacologic stress, per cardiology report Nonischemic electrocardiographic response to pharmacologic stress, per cardiology report No imaging findings to suggest ischemia, at level of stress achieved. Calculated post stress ejection fraction 56%
[2018-07-27 16:00] VITALS: BP 143/63
--- NOTE | 2018-07-27 17:28 | Internal Med Progress Note ---
Subjective Date of Service: Jul 27, 2018 Physician Name Manuel William Attending Physician Wolf Pineda MD Current Medications Medications (Trade) Dose Ordered Sig/Tona Route PRN Reason Start Time Stop Time Status Last Admin Dose Admin Acetaminophen (Tylenol) 650 mg Q6H PRN ORAL Mild Pain/Temp > 100.5 07/23/18 00:15 08/22/18 00:14 Alprazolam (Xanax) 0.5 mg Q12H PRN ORAL For Anxiety 07/23/18 00:15 07/30/18 00:14 07/23/18 03:22 Amlodipine Besylate (Norvasc) 10 mg DAILY ORAL 07/23/18 09:00 08/22/18 08:59 07/27/18 09:38 Atorvastatin Calcium (Lipitor) 10 mg BEDTIME ORAL 07/25/18 21:00 08/24/18 20:59 07/26/18 21:20 Citalopram Hydrobromide (celeXA) 20 mg DAILY ORAL 07/25/18 09:00 08/24/18 08:59 07/27/18 09:33 Docusate Sodium (Colace) 100 mg TWICE A DAY ORAL 07/23/18 09:00 08/22/18 08:59 07/27/18 17:24 Heparin Sodium (Porcine) (Heparin 5000 units/ml) 5,000 units EVERY 8 HOURS SUBQ 07/23/18 06:00 08/22/18 05:59 07/27/18 14:12 Hydralazine HCl (Apresoline) 10 mg Q6H PRN ORAL SBP >160 07/23/18 00:15 08/22/18 00:14 Lansoprazole (Prevacid) 30 mg ACBREAKFAST ORAL 07/27/18 06:30 08/26/18 06:29 07/27/18 05:50 Losartan Potassium (Cozaar) 100 mg DAILY ORAL 07/23/18 09:00 08/22/18 08:59 07/27/18 09:37 Ondansetron HCl (Zofran) 4 mg Q4H PRN IVP Nausea & Vomiting 07/23/18 00:15 08/22/18 00:14 Polyethylene Glycol (Miralax) 17 gm DAILYPRN PRN ORAL Constipation 07/25/18 13:15 08/24/18 13:14 07/26/18 13:39 Quetiapine Fumarate (SEROquel) 12.5 mg EVERY 4 HOURS PRN ORAL agitation 07/24/18 14:00 08/23/18 13:59 Regadenoson (Lexiscan) 0.4 mg ONCE IV 07/26/18 15:00 07/28/18 23:59 Sodium Phosphate (Fleet's Sodium Phosl Enema) 133 ml PRN PRN RECTAL Constipation 07/26/18 15:15 08/25/18 15:14 Tramadol HCl (Ultram) 100 mg Q12H PRN ORAL Pain (4-10) 07/23/18 07:45 07/30/18 07:44 Allergies: Coded Allergies: IODINE (Verified Allergy, Unknown, 07/23/18) PENICILLINS (Verified Allergy, Unknown, 07/23/18) SULFA (SULFONAMIDE ANTIBIOTICS) (Verified Allergy, Unknown, 07/23/18) ROS Limited/Unobtainable: No Constitutional: Reports: no symptoms HEENT: Reports: no symptoms Cardiovascular: Reports: no symptoms Respiratory: Reports: no symptoms Gastrointestinal/Abdominal: Reports: no symptoms Neurologic/Psychiatric: Reports: no symptoms Subjective 78 YO F admitted with chief complaint of chest pain. Now bradycardia. Cover for Int Med-Dr Pineda. Await stress test result Objective Last Vital Signs Date Time Temp Pulse Resp B/P (MAP) Pulse Ox O2 Delivery O2 Flow Rate FiO2 07/27/18 16:00 98.1 62 18 143/63 (89) 100 98.1 07/27/18 09:00 Room Air Laboratory Tests Test 07/27/18 10:20 White Blood Count 6.1 K/UL (4.8-10.8) Red Blood Count 4.41 M/UL (4.20-5.40) Hemoglobin 13.0 G/DL (12.0-16.0) Hematocrit 39.3 % (37.0-47.0) Mean Corpuscular Volume 89 FL (80-99) Mean Corpuscular Hemoglobin 29.4 PG (27.0-31.0) Mean Corpuscular Hemoglobin Concent 33.0 G/DL (32.0-36.0) Red Cell Distribution Width 11.6 % (11.6-14.8) Platelet Count 358 K/UL (150-450) Mean Platelet Volume 6.3 FL (6.5-10.1) L Neutrophils (%) (Auto) 65.4 % (45.0-75.0) Lymphocytes (%) (Auto) 22.8 % (20.0-45.0) Monocytes (%) (Auto) 9.1 % (1.0-10.0) Eosinophils (%) (Auto) 1.5 % (0.0-3.0) Basophils (%) (Auto) 1.2 % (0.0-2.0) Sodium Level 137 MMOL/L (136-145) Potassium Level 3.9 MMOL/L (3.5-5.1) Chloride Level 102 MMOL/L (98-107) Carbon Dioxide Level 26 MMOL/L (21-32) Anion Gap 9 mmol/L (5-15) Blood Urea Nitrogen 13 mg/dL (7-18) Creatinine 0.5 MG/DL (0.55-1.30) L Estimat Glomerular Filtration Rate mL/min (>60) Glucose Level 108 MG/DL (74-106) H Calcium Level 10.2 MG/DL (8.5-10.1) H Intake and Output 07/26/18 07/27/18 19:00 07:00 Intake Total 480 ml Balance 480 ml Intake Oral 480 ml # Voids 2 2 # Bowel Movements 1 Objective General Appearance: WD/WN, no apparent distress, alert EENT: PERRL/EOMI, normal ENT inspection, TMs normal Neck: non-tender, normal alignment, supple Cardiovascular: normal peripheral pulses, regular rhythm, no gallop/murmur, no JVD, bradycardia Respiratory/Chest: chest wall non-tender, lungs clear, normal breath sounds, no respiratory distress, no accessory muscle use Abdomen: normal bowel sounds, non tender, soft, no organomegaly, no mass Extremities: normal range of motion, non-tender Neurologic: registration representative II-XII grossly normal, no motor/sensory deficits Skin: normal pigmentation, warm/dry Assessment/Plan Problem List: (1) Cervical stenosis of spinal canal (2) Chest pain Assessment & Plan: s/P stress test on 07/27/18. Ruled out for Acute DE by troponin. See cardiology note (3) Hypertension (4) LBBB (left bundle branch block) (5) Alzheimer's dementia (6) Bradycardia Assessment & Plan: Due to LBBB-see cardiology note. D/C coreg Status: progressing Manuel William MD Jul 27, 2018 17:28
--- NOTE | 2018-07-27 19:14 | Consultation ---
Consult Note Consult Note NEUROLOGY CONSULTATION: Full note dictated #[id number] 78 y/o, RH, BF with PH of Hypertension, cervical spine stenosis, Alzheimer's dementia, irritable bowel syndrome. She was hospitalized on 07/23/18 for CP and AMS. ON EXAM: Severe aphasia making it impossible for her to communicate. No focal or laterlizing findings. IMPRESSION: Advanced dementia with behavioral problems. CP resolved. REC: Rx of behavioral problems as per Dr. Hare. Rx of CP as per Dr. Vaca. No further neurologic interventions. Osvaldo Gamez M.D., M.S.P.H. OSVALDO GAMEZ Jul 27, 2018 19:14
[2018-07-27 20:00] VITALS: BP 152/82
--- NOTE | 2018-07-27 23:45 | Consultation ---
DATE OF CONSULTATION: 07/27/2018 NEUROLOGY CONSULTATION CONSULTING PHYSICIAN: Fahad Quiles M.D. REQUESTING PHYSICIAN: Manuel William M.D. HISTORY: Ms Kailee Moody is a 78-year-old, right-handed, black lady, who does have a past history of hypertension, cervical spine stenosis status post surgery, advanced Alzheimer's dementia, and irritable bowel syndrome. She was functioning relatively well until 07/23/2018 when she was hospitalized for chest pain and an alteration in her mental state. It is unclear as to how her mental state has changed. Since she has been here, she has continued to exhibit severe problems with agitation at times and has been cognitively impoverished. This consultation was requested to evaluate the patient for her altered mental state. As per the patient, at this point in time, she has no chest pain, and because of a significant aphasia she is unable to tell me why she is in the hospital. PAST MEDICAL HISTORY: Significant for hypertension, cervical spine stenosis status post surgery, dementia, most probably Alzheimer's disease, and irritable bowel syndrome. FAMILY HISTORY: Unavailable. PERSONAL HISTORY: Home: She is unable to tell me where she lives. Work: She is unable to tell me what kind of work she did in the past. She is now retired. Habits: She denies use of alcohol, tobacco, or illicit drugs. PRESENT MEDICATIONS: Include Prevacid, Lipitor, MiraLAX, Celexa, Seroquel, Cozaar, Norvasc, Ultram, heparin for DVT prophylaxis, Xanax p.r.n., hydralazine p.r.n., Zofran p.r.n., and Tylenol p.r.n. PHYSICAL EXAMINATION: GENERAL: She is a well-developed, well-nourished, black lady, lying in bed, in no acute distress. VITAL SIGNS: Pulse 62/minute, blood pressure 143/63 mmHg, respirations 18/minute, temperature 98.1 degrees Fahrenheit. HEAD: Normocephalic and atraumatic. NECK: No neck rigidity was observed. EENT: Examination benign. NEUROLOGICAL EXAMINATION: MENTAL STATUS EXAMINATION: She was awake and alert. She was oriented to self only. She had no idea where she was or what the date was. She was able to recall 3/3 words immediately, but could not remember any of them in 1 minute and 3 minutes. She was unable to tell me who the present President was and who prior Presidents were. Her mathematical skills were impaired. Her visuospatial function was also impaired. It should be noted that she had a significant aphasia making mental status testing quite difficult. SPEECH: She had no dysarthria. LANGUAGE: She had problems with comprehension, repetition, naming, and expression of language. CRANIAL NERVE EXAMINATION: II: She did blink to threat. She was unable to cooperate for confrontation testing. III, IV & : The external ocular movements were full and the pupils 3 mm in diameter, equal, round, regular, and reactive to light. V: She had normal facial sensations, and the temporales, masseters, and pterygoids functioned normally. VII: She had normal facial expressions and no facial asymmetry. VIII: She was able to hear well bilaterally and had no nystagmus. IX: The palate moved symmetrically on phonation. X: She had no hoarseness of voice. XI: The sternocleidomastoids and trapezii functioned normally. XII: The tongue was in the midline without any fasciculations or atrophy. MOTOR SYSTEM: The tone was minimally increased in all four extremities with a degree of gegenhalten. Examination of muscle mass revealed no focal wasting. Examination of power was impossible to perform on individual muscle groups because of her inability to cooperate, however, she did move all four extremities relatively well. SENSORY EXAMINATION: She responded appropriately to deep pain. She was unable to cooperate for other sensory modalities. REFLEXES: 1+ and bilaterally symmetrical at the biceps, triceps, brachioradialis, and knees. 0 at both ankles. The plantar responses were flexor bilaterally. COORDINATION, STANCE & GAIT: Could not be tested. DIAGNOSTIC IMPRESSION: 1. Ms Kailee Moody is a 78-year-old, right-handed, black lady, with a past history of hypertension, cervical spinal stenosis, dementia, most probably related to Alzheimer disease, and irritable bowel syndrome, who was hospitalized on 07/23/2018 for chest pain and an altered mental state. She has exhibited significant behavioral problems while she has been in the hospital. 2. On neurological examination at this time, she has a significant aphasia making it impossible to determine how severe her cognitive dysfunction is. She, however, does not demonstrate any focal or lateralizing findings. 3. Laboratory data obtained thus far have revealed a relatively normal CBC. Chemistry panel, which is also relatively normal. Normal TSH. 4. The patient's history and neurological examination are most compatible with an advanced dementia with behavioral problems, which may have worsened because of her new environment. As per the patient, her chest pain has resolved. RECOMMENDATIONS: 1. Agree with management thus far. 2. Treatment of behavioral problems as per Dr. Hare. 3. Treatment of cardiac problems as per Dr. Vaca. 4. At this point in time, no further neurological interventions are recommended. Thank you for entrusting me with the care of Ms Paulo Moody. I shall follow her with you. Fahad Quiles M.D., M.S.P.H. DR: HARISH JOB#: [id number] MTDD
[2018-07-28] VITALS: BP 185/85
[2018-07-28] MEDS: HydrALAZINE 10mg Tab ORAL PRN ×2 (00:02→06:16)
[2018-07-28 04:00] VITALS: BP 165/59
[2018-07-28] MEDS: Heparin 5000 units/ml inj SUBQ SCH ×3 (06:17→21:43)
[2018-07-28 08:00] VITALS: BP 165/59
[2018-07-28 08:01] LABS: HEMOGLOBIN 13.2 G/DL (12.0-16.0); MEAN CORPUSCULAR VOLUME 88 FL (80-99); PLATELET COUNT 434 K/UL (150-450); RED BLOOD COUNT 4.53 M/UL (4.20-5.40); RED CELL DISTRIBUTION WIDTH 11.6 % (11.6-14.8); WHITE BLOOD COUNT 11.6 K/UL (4.8-10.8)
[2018-07-28 08:13] LABS: ANION GAP 10 mmol/L (5-15); BLOOD UREA NITROGEN 14 mg/dL (7-18); CALCIUM 10.8 MG/DL (8.5-10.1); CARBON DIOXIDE 26 MMOL/L (21-32); CHLORIDE 101 MMOL/L (98-107); CREATININE 0.6 MG/DL (0.55-1.30); POTASSIUM 3.7 MMOL/L (3.5-5.1); SODIUM 137 MMOL/L (136-145)
[2018-07-28] MEDS: Docusate 100mg cap ORAL SCH ×2 (08:42→18:10)
[2018-07-28] MEDS: Citalopram Hydrobromide 10mg Tab ORAL SCH (08:42)
[2018-07-28] MEDS: Losartan 50mg tab ORAL SCH (08:42)
--- NOTE | 2018-07-28 10:14 | Pulmonology Progress Note ---
Assessment/Plan Problems: (1) Acute coronary syndrome (2) LBBB (left bundle branch block) (3) Hypertension (4) Alzheimer's dementia (5) H/O neck surgery Assessment/Plan last part of stress test pending enzymes negative PT/OT evaluation bp is not controlled. Add hydralazine 50 q6 hours. pt will go home with family Subjective ROS Limited/Unobtainable: Yes Interval Events: comfortable Allergies: Coded Allergies: IODINE (Verified Allergy, Unknown, 07/23/18) PENICILLINS (Verified Allergy, Unknown, 07/23/18) SULFA (SULFONAMIDE ANTIBIOTICS) (Verified Allergy, Unknown, 07/23/18) Objective Last 24 Hour Vital Signs Date Time Temp Pulse Resp B/P (MAP) Pulse Ox O2 Delivery O2 Flow Rate FiO2 07/28/18 08:43 73 174/74 07/28/18 08:42 174/74 07/28/18 08:00 97.3 73 20 165/59 (94) 95 97.3 07/28/18 06:16 165/59 07/28/18 04:00 97.3 73 20 165/59 (94) 95 97.3 07/28/18 04:00 77 07/28/18 00:02 185/85 07/28/18 00:00 70 07/28/18 00:00 97.5 86 21 185/85 (118) 100 97.5 07/27/18 21:00 Room Air 07/27/18 20:00 97.9 72 21 152/82 (105) 98 97.9 07/27/18 20:00 71 07/27/18 16:00 98.1 62 18 143/63 (89) 100 98.1 07/27/18 16:00 62 07/27/18 12:00 55 07/27/18 12:00 97.9 18 126/51 (76) 100 97.9 Intake and Output 07/27/18 07/28/18 19:00 07:00 Intake Total 180 ml Balance 180 ml Intake Oral 180 ml # Voids 8 # Bowel Movements 6 General Appearance: WD/WN HEENT: normocephalic, atraumatic Respiratory/Chest: chest wall non-tender, lungs clear Abdomen: normal bowel sounds, soft, non tender Genitourinary: normal external genitalia Extremities: no clubbing Skin: no rash Neurologic/Psychiatric: electronic induction hardener II-XII grossly normal Lymphatic: no neck adenopathy Laboratory Tests 07/27/18 10:20: White Blood Count 6.1, Red Blood Count 4.41, Hemoglobin 13.0, Hematocrit 39.3, Mean Corpuscular Volume 89, Mean Corpuscular Hemoglobin 29.4, Mean Corpuscular Hemoglobin Concent 33.0, Red Cell Distribution Width 11.6, Platelet Count 358, Mean Platelet Volume 6.3L, Neutrophils (%) (Auto) 65.4, Lymphocytes (%) (Auto) 22.8, Monocytes (%) (Auto) 9.1, Eosinophils (%) (Auto) 1.5, Basophils (%) (Auto ) 1.2, Sodium Level 137, Potassium Level 3.9, Chloride Level 102, Carbon Dioxide Level 26, Anion Gap 9, Blood Urea Nitrogen 13, Creatinine 0.5L, Estimat Glomerular Filtration Rate , Glucose Level 108H, Calcium Level 10.2H 07/28/18 06:10: White Blood Count 11.6#H, Red Blood Count 4.53, Hemoglobin 13.2, Hematocrit 40.0 , Mean Corpuscular Volume 88, Mean Corpuscular Hemoglobin 29.1, Mean Corpuscular Hemoglobin Concent 33.0, Red Cell Distribution Width 11.6, Platelet Count 434, Mean Platelet Volume 6.3L, Neutrophils (%) (Auto) , Lymphocytes (%) ( Auto) , Monocytes (%) (Auto) , Eosinophils (%) (Auto) , Basophils (%) (Auto) , Sodium Level 137, Potassium Level 3.7, Chloride Level 101, Carbon Dioxide Level 26, Anion Gap 10, Blood Urea Nitrogen 14, Creatinine 0.6, Estimat Glomerular Filtration Rate , Glucose Level 157H, Calcium Level 10.8H, Neutrophils % (Manual ) [Pending], Lymphocytes % (Manual) [Pending], Platelet Estimate [Pending], Platelet Morphology [Pending] Current Medications Medications (Trade) Dose Ordered Sig/Tona Route PRN Reason Start Time Stop Time Status Last Admin Dose Admin Acetaminophen (Tylenol) 650 mg Q6H PRN ORAL Mild Pain/Temp > 100.5 07/23/18 00:15 08/22/18 00:14 Alprazolam (Xanax) 0.5 mg Q12H PRN ORAL For Anxiety 07/23/18 00:15 07/30/18 00:14 07/23/18 03:22 Amlodipine Besylate (Norvasc) 10 mg DAILY ORAL 07/23/18 09:00 08/22/18 08:59 07/28/18 08:43 Atorvastatin Calcium (Lipitor) 10 mg BEDTIME ORAL 07/25/18 21:00 08/24/18 20:59 07/27/18 21:38 Citalopram Hydrobromide (celeXA) 20 mg DAILY ORAL 07/25/18 09:00 08/24/18 08:59 07/28/18 08:42 Docusate Sodium (Colace) 100 mg TWICE A DAY ORAL 07/23/18 09:00 08/22/18 08:59 07/28/18 08:42 Heparin Sodium (Porcine) (Heparin 5000 units/ml) 5,000 units EVERY 8 HOURS SUBQ 07/23/18 06:00 08/22/18 05:59 07/28/18 06:17 Hydralazine HCl (Apresoline) 10 mg Q6H PRN ORAL SBP >160 07/23/18 00:15 08/22/18 00:14 07/28/18 06:16 Lansoprazole (Prevacid) 30 mg ACBREAKFAST ORAL 07/27/18 06:30 08/26/18 06:29 07/28/18 06:16 Losartan Potassium (Cozaar) 100 mg DAILY ORAL 07/23/18 09:00 08/22/18 08:59 07/28/18 08:42 Ondansetron HCl (Zofran) 4 mg Q4H PRN IVP Nausea & Vomiting 07/23/18 00:15 08/22/18 00:14 Polyethylene Glycol (Miralax) 17 gm DAILYPRN PRN ORAL Constipation 07/25/18 13:15 08/24/18 13:14 07/26/18 13:39 Quetiapine Fumarate (SEROquel) 12.5 mg EVERY 4 HOURS PRN ORAL agitation 07/24/18 14:00 08/23/18 13:59 Regadenoson (Lexiscan) 0.4 mg ONCE IV 07/26/18 15:00 07/28/18 23:59 Sodium Phosphate (Fleet's Sodium Phosl Enema) 133 ml PRN PRN RECTAL Constipation 07/26/18 15:15 08/25/18 15:14 Tramadol HCl (Ultram) 100 mg Q12H PRN ORAL Pain (4-10) 07/23/18 07:45 07/30/18 07:44 Opal Olivares MD Jul 28, 2018 10:14
[2018-07-28] MEDS: HydrALAZINE 50mg tab ORAL SCH ×2 (10:57→18:09)
[2018-07-28 12:00] VITALS: BP 168/73
[2018-07-28] MEDS ORDERED: HydrALAZINE 50mg tab ORAL SCH (12:00)
--- NOTE | 2018-07-28 14:31 | Cardiac Electrophysiology PN ---
Assessment/Plan Assessment/Plan 1. Atypical Chest pain. The patient was ruled out for myocardial infarction, however, she has underlying left bundle-branch block. Nuclear stress test yesterday showed no ischemia 2. Profound bradycardia with heart rate 40 as well as complete left bundle-branch block. Resolved off Coreg 3. Hypertension. Continue amlodipine 10 mg and Losartan 100 mg daily. 4. Complete left bundle-branch block. 5. Anxiety. 6. Dementia. RIAN RN Subjective Subjective In SR with LBBB. Nuclear stress test yesterday showed no evidence of ischemia Objective Last 24 Hour Vital Signs Date Time Temp Pulse Resp B/P (MAP) Pulse Ox O2 Delivery O2 Flow Rate FiO2 07/28/18 12:00 96.6 70 18 168/73 (104) 100 96.6 07/28/18 12:00 75 07/28/18 10:57 168/73 07/28/18 09:00 Room Air 07/28/18 08:43 73 174/74 07/28/18 08:42 174/74 07/28/18 08:00 84 07/28/18 08:00 97.3 73 20 165/59 (94) 95 97.3 07/28/18 06:16 165/59 07/28/18 04:00 97.3 73 20 165/59 (94) 95 97.3 07/28/18 04:00 77 07/28/18 00:02 185/85 07/28/18 00:00 70 07/28/18 00:00 97.5 86 21 185/85 (118) 100 97.5 07/27/18 21:00 Room Air 07/27/18 20:00 97.9 72 21 152/82 (105) 98 97.9 07/27/18 20:00 71 07/27/18 16:00 98.1 62 18 143/63 (89) 100 98.1 07/27/18 16:00 62 Intake and Output 07/27/18 07/28/18 19:00 07:00 Intake Total 180 ml Balance 180 ml Intake Oral 180 ml # Voids 8 # Bowel Movements 6 Laboratory Tests Test 07/28/18 06:10 White Blood Count 11.6 K/UL (4.8-10.8) #H Red Blood Count 4.53 M/UL (4.20-5.40) Hemoglobin 13.2 G/DL (12.0-16.0) Hematocrit 40.0 % (37.0-47.0) Mean Corpuscular Volume 88 FL (80-99) Mean Corpuscular Hemoglobin 29.1 PG (27.0-31.0) Mean Corpuscular Hemoglobin Concent 33.0 G/DL (32.0-36.0) Red Cell Distribution Width 11.6 % (11.6-14.8) Platelet Count 434 K/UL (150-450) Mean Platelet Volume 6.3 FL (6.5-10.1) L Neutrophils (%) (Auto) % (45.0-75.0) Lymphocytes (%) (Auto) % (20.0-45.0) Monocytes (%) (Auto) % (1.0-10.0) Eosinophils (%) (Auto) % (0.0-3.0) Basophils (%) (Auto) % (0.0-2.0) Differential Total Cells Counted 100 Neutrophils % (Manual) 81 % (45-75) H Lymphocytes % (Manual) 13 % (20-45) L Monocytes % (Manual) 6 % (1-10) Eosinophils % (Manual) 0 % (0-3) Basophils % (Manual) 0 % (0-2) Band Neutrophils 0 % (0-8) Platelet Estimate Adequate Platelet Morphology Normal Red Blood Cell Morphology Normal Sodium Level 137 MMOL/L (136-145) Potassium Level 3.7 MMOL/L (3.5-5.1) Chloride Level 101 MMOL/L (98-107) Carbon Dioxide Level 26 MMOL/L (21-32) Anion Gap 10 mmol/L (5-15) Blood Urea Nitrogen 14 mg/dL (7-18) Creatinine 0.6 MG/DL (0.55-1.30) Estimat Glomerular Filtration Rate mL/min (>60) Glucose Level 157 MG/DL (74-106) H Calcium Level 10.8 MG/DL (8.5-10.1) H Objective HEAD AND NECK: No JVD or carotid bruit. LUNGS: Clear. CARDIOVASCULAR: Nl S1 and S2 with no gallop or murmur. ABDOMEN: Soft. EXTREMITIES: No pitting edema. Jose Juan Vaca MD Jul 28, 2018 14:31
[2018-07-28 16:00] VITALS: BP 115/81
--- NOTE | 2018-07-28 16:34 | Internal Med Progress Note ---
Subjective Date of Service: Jul 28, 2018 Physician Name William,Manuel Attending Physician Wolf Pineda MD Current Medications Medications (Trade) Dose Ordered Sig/Tona Route PRN Reason Start Time Stop Time Status Last Admin Dose Admin Acetaminophen (Tylenol) 650 mg Q6H PRN ORAL Mild Pain/Temp > 100.5 07/23/18 00:15 08/22/18 00:14 Alprazolam (Xanax) 0.5 mg Q12H PRN ORAL For Anxiety 07/23/18 00:15 07/30/18 00:14 07/23/18 03:22 Amlodipine Besylate (Norvasc) 10 mg DAILY ORAL 07/23/18 09:00 08/22/18 08:59 07/28/18 08:43 Atorvastatin Calcium (Lipitor) 10 mg BEDTIME ORAL 07/25/18 21:00 08/24/18 20:59 07/27/18 21:38 Citalopram Hydrobromide (celeXA) 20 mg DAILY ORAL 07/25/18 09:00 08/24/18 08:59 07/28/18 08:42 Docusate Sodium (Colace) 100 mg TWICE A DAY ORAL 07/23/18 09:00 08/22/18 08:59 07/28/18 08:42 Heparin Sodium (Porcine) (Heparin 5000 units/ml) 5,000 units EVERY 8 HOURS SUBQ 07/23/18 06:00 08/22/18 05:59 07/28/18 14:51 Hydralazine HCl (Apresoline) 50 mg Q6HR ORAL 07/28/18 11:00 08/27/18 10:59 07/28/18 10:57 Lansoprazole (Prevacid) 30 mg ACBREAKFAST ORAL 07/27/18 06:30 08/26/18 06:29 07/28/18 06:16 Losartan Potassium (Cozaar) 100 mg DAILY ORAL 07/23/18 09:00 08/22/18 08:59 07/28/18 08:42 Ondansetron HCl (Zofran) 4 mg Q4H PRN IVP Nausea & Vomiting 07/23/18 00:15 08/22/18 00:14 Polyethylene Glycol (Miralax) 17 gm DAILYPRN PRN ORAL Constipation 07/25/18 13:15 08/24/18 13:14 07/26/18 13:39 Quetiapine Fumarate (SEROquel) 12.5 mg EVERY 4 HOURS PRN ORAL agitation 07/24/18 14:00 08/23/18 13:59 Sodium Phosphate (Fleet's Sodium Phosl Enema) 133 ml PRN PRN RECTAL Constipation 07/26/18 15:15 08/25/18 15:14 Tramadol HCl (Ultram) 100 mg Q12H PRN ORAL Pain (4-10) 07/23/18 07:45 07/30/18 07:44 Allergies: Coded Allergies: IODINE (Verified Allergy, Unknown, 07/23/18) PENICILLINS (Verified Allergy, Unknown, 07/23/18) SULFA (SULFONAMIDE ANTIBIOTICS) (Verified Allergy, Unknown, 07/23/18) ROS Limited/Unobtainable: No Constitutional: Reports: no symptoms HEENT: Reports: no symptoms Cardiovascular: Reports: no symptoms Respiratory: Reports: no symptoms Gastrointestinal/Abdominal: Reports: no symptoms Genitourinary: Reports: no symptoms Neurologic/Psychiatric: Reports: no symptoms Subjective 78 YO F admitted with chief complaint of chest pain. Now bradycardia. Cover for Int Med-Dr Pineda. Await stress test result Objective Last Vital Signs Date Time Temp Pulse Resp B/P (MAP) Pulse Ox O2 Delivery O2 Flow Rate FiO2 07/28/18 12:00 96.6 70 18 168/73 (104) 100 96.6 07/28/18 09:00 Room Air Laboratory Tests Test 07/28/18 06:10 White Blood Count 11.6 K/UL (4.8-10.8) #H Red Blood Count 4.53 M/UL (4.20-5.40) Hemoglobin 13.2 G/DL (12.0-16.0) Hematocrit 40.0 % (37.0-47.0) Mean Corpuscular Volume 88 FL (80-99) Mean Corpuscular Hemoglobin 29.1 PG (27.0-31.0) Mean Corpuscular Hemoglobin Concent 33.0 G/DL (32.0-36.0) Red Cell Distribution Width 11.6 % (11.6-14.8) Platelet Count 434 K/UL (150-450) Mean Platelet Volume 6.3 FL (6.5-10.1) L Neutrophils (%) (Auto) % (45.0-75.0) Lymphocytes (%) (Auto) % (20.0-45.0) Monocytes (%) (Auto) % (1.0-10.0) Eosinophils (%) (Auto) % (0.0-3.0) Basophils (%) (Auto) % (0.0-2.0) Differential Total Cells Counted 100 Neutrophils % (Manual) 81 % (45-75) H Lymphocytes % (Manual) 13 % (20-45) L Monocytes % (Manual) 6 % (1-10) Eosinophils % (Manual) 0 % (0-3) Basophils % (Manual) 0 % (0-2) Band Neutrophils 0 % (0-8) Platelet Estimate Adequate Platelet Morphology Normal Red Blood Cell Morphology Normal Sodium Level 137 MMOL/L (136-145) Potassium Level 3.7 MMOL/L (3.5-5.1) Chloride Level 101 MMOL/L (98-107) Carbon Dioxide Level 26 MMOL/L (21-32) Anion Gap 10 mmol/L (5-15) Blood Urea Nitrogen 14 mg/dL (7-18) Creatinine 0.6 MG/DL (0.55-1.30) Estimat Glomerular Filtration Rate mL/min (>60) Glucose Level 157 MG/DL (74-106) H Calcium Level 10.8 MG/DL (8.5-10.1) H Intake and Output 07/27/18 07/28/18 19:00 07:00 Intake Total 180 ml Balance 180 ml Intake Oral 180 ml # Voids 8 # Bowel Movements 6 Objective General Appearance: WD/WN, no apparent distress, alert EENT: PERRL/EOMI, normal ENT inspection, TMs normal Neck: non-tender, normal alignment, supple Cardiovascular: normal peripheral pulses, regular rhythm, no gallop/murmur, no JVD, bradycardia Respiratory/Chest: chest wall non-tender, lungs clear, normal breath sounds, no respiratory distress, no accessory muscle use Abdomen: normal bowel sounds, non tender, soft, no organomegaly, no mass Extremities: normal range of motion, non-tender Neurologic: dean of instruction II-XII grossly normal, no motor/sensory deficits Skin: normal pigmentation, warm/dry Assessment/Plan Problem List: (1) Cervical stenosis of spinal canal (2) Chest pain Assessment & Plan: s/P stress test on Fri07/27/18-nonischemic. Ruled out for Acute IN by troponin. See cardiology note (3) Hypertension (4) LBBB (left bundle branch block) (5) Alzheimer's dementia (6) Bradycardia Assessment & Plan: Due to LBBB-see cardiology note. D/C coreg Status: progressing Assessment/Plan Discharge planning Manuel William MD Jul 28, 2018 16:34
--- NOTE | 2018-07-28 19:52 | General Progress Note ---
Assessment/Plan Status: stable Assessment/Plan encephalopathy due to [facility] [place] mdd celexa seroquel prn provided ro/st Subjective Date patient seen: Jul 28, 2018 Neurologic/Psychiatric: Reports: anxiety, depressed Allergies: Coded Allergies: IODINE (Verified Allergy, Unknown, 07/23/18) PENICILLINS (Verified Allergy, Unknown, 07/23/18) SULFA (SULFONAMIDE ANTIBIOTICS) (Verified Allergy, Unknown, 07/23/18) Objective Last 24 Hour Vital Signs Date Time Temp Pulse Resp B/P (MAP) Pulse Ox O2 Delivery O2 Flow Rate FiO2 07/28/18 18:09 154/71 07/28/18 16:00 97.7 87 18 115/81 (92) 95 97.7 07/28/18 16:00 73 07/28/18 12:00 96.6 70 18 168/73 (104) 100 96.6 07/28/18 12:00 75 07/28/18 10:57 168/73 07/28/18 09:00 Room Air 07/28/18 08:43 73 174/74 07/28/18 08:42 174/74 07/28/18 08:00 84 07/28/18 08:00 97.3 73 20 165/59 (94) 95 97.3 07/28/18 06:16 165/59 07/28/18 04:00 97.3 73 20 165/59 (94) 95 97.3 07/28/18 04:00 77 07/28/18 00:02 185/85 07/28/18 00:00 70 07/28/18 00:00 97.5 86 21 185/85 (118) 100 97.5 07/27/18 21:00 Room Air 07/27/18 20:00 97.9 72 21 152/82 (105) 98 97.9 07/27/18 20:00 71 Intake and Output 07/27/18 07/28/18 19:00 07:00 Intake Total 180 ml Balance 180 ml Intake Oral 180 ml # Voids 8 # Bowel Movements 6 Laboratory Tests 07/28/18 06:10: White Blood Count 11.6#H, Red Blood Count 4.53, Hemoglobin 13.2, Hematocrit 40.0 , Mean Corpuscular Volume 88, Mean Corpuscular Hemoglobin 29.1, Mean Corpuscular Hemoglobin Concent 33.0, Red Cell Distribution Width 11.6, Platelet Count 434, Mean Platelet Volume 6.3L, Neutrophils (%) (Auto) , Lymphocytes (%) ( Auto) , Monocytes (%) (Auto) , Eosinophils (%) (Auto) , Basophils (%) (Auto) , Differential Total Cells Counted 100, Neutrophils % (Manual) 81H, Lymphocytes % (Manual) 13L, Monocytes % (Manual) 6, Eosinophils % (Manual) 0, Basophils % ( Manual) 0, Band Neutrophils 0, Platelet Estimate Adequate, Platelet Morphology Normal, Red Blood Cell Morphology Normal, Sodium Level 137, Potassium Level 3.7 , Chloride Level 101, Carbon Dioxide Level 26, Anion Gap 10, Blood Urea Nitrogen 14, Creatinine 0.6, Estimat Glomerular Filtration Rate , Glucose Level 157H, Calcium Level 10.8H Height (Feet): 5 Height (Inches): 4.00 Weight (Pounds): 122 General Appearance: no apparent distress, confused Sarah Beth Hare MD Jul 28, 2018 19:51
[2018-07-28 20:00] VITALS: BP 119/67
--- NOTE | 2018-07-28 20:50 | Neurology Progress Note ---
Interim History Interim History Interim History Ms. Paulo Moody feels better. She is still cognitively impoverished. She is still negativistic. There has been no significant change in her neurologic state. Review of Systems Neuro Review of Systems Benign. Objective Physical Exam Last Vital Signs Date Time Temp Pulse Resp B/P (MAP) Pulse Ox O2 Delivery O2 Flow Rate FiO2 07/28/18 18:09 154/71 07/28/18 16:00 97.7 87 18 95 97.7 07/28/18 09:00 Room Air Laboratory Tests Test 07/28/18 06:10 White Blood Count 11.6 K/UL (4.8-10.8) #H Red Blood Count 4.53 M/UL (4.20-5.40) Hemoglobin 13.2 G/DL (12.0-16.0) Hematocrit 40.0 % (37.0-47.0) Mean Corpuscular Volume 88 FL (80-99) Mean Corpuscular Hemoglobin 29.1 PG (27.0-31.0) Mean Corpuscular Hemoglobin Concent 33.0 G/DL (32.0-36.0) Red Cell Distribution Width 11.6 % (11.6-14.8) Platelet Count 434 K/UL (150-450) Mean Platelet Volume 6.3 FL (6.5-10.1) L Neutrophils (%) (Auto) % (45.0-75.0) Lymphocytes (%) (Auto) % (20.0-45.0) Monocytes (%) (Auto) % (1.0-10.0) Eosinophils (%) (Auto) % (0.0-3.0) Basophils (%) (Auto) % (0.0-2.0) Differential Total Cells Counted 100 Neutrophils % (Manual) 81 % (45-75) H Lymphocytes % (Manual) 13 % (20-45) L Monocytes % (Manual) 6 % (1-10) Eosinophils % (Manual) 0 % (0-3) Basophils % (Manual) 0 % (0-2) Band Neutrophils 0 % (0-8) Platelet Estimate Adequate Platelet Morphology Normal Red Blood Cell Morphology Normal Sodium Level 137 MMOL/L (136-145) Potassium Level 3.7 MMOL/L (3.5-5.1) Chloride Level 101 MMOL/L (98-107) Carbon Dioxide Level 26 MMOL/L (21-32) Anion Gap 10 mmol/L (5-15) Blood Urea Nitrogen 14 mg/dL (7-18) Creatinine 0.6 MG/DL (0.55-1.30) Estimat Glomerular Filtration Rate mL/min (>60) Glucose Level 157 MG/DL (74-106) H Calcium Level 10.8 MG/DL (8.5-10.1) H Neurologic Exam Objective PHYSICAL EXAMINATION: GENERAL: She is a well-developed, well-nourished, black lady, lying in bed, in no acute distress. HEAD: Normocephalic and atraumatic. NECK: No neck rigidity was observed. EENT: Examination benign. NEUROLOGICAL EXAMINATION: MENTAL STATUS EXAMINATION: She was awake and alert. She was oriented to self only. She had no idea where she was or what the date was. She was able to recall 3/3 words immediately, but could not remember any of them in 1 minute and 3 minutes. She was unable to tell me who the present President was and who prior Presidents were. Her mathematical skills were impaired. Her visuospatial function was also impaired. It should be noted that she had a significant aphasia making mental status testing quite difficult. SPEECH: She had no dysarthria. LANGUAGE: She had problems with comprehension, repetition, naming, and expression of language. CRANIAL NERVE EXAMINATION: II: She did blink to threat. She was unable to cooperate for confrontation testing. III, IV & : The external ocular movements were full and the pupils 3 mm in diameter, equal, round, regular, and reactive to light. V: She had normal facial sensations, and the temporales, masseters, and pterygoids functioned normally. VII: She had normal facial expressions and no facial asymmetry. VIII: She was able to hear well bilaterally and had no nystagmus. IX: The palate moved symmetrically on phonation. X: She had no hoarseness of voice. XI: The sternocleidomastoids and trapezii functioned normally. XII: The tongue was in the midline without any fasciculations or atrophy. MOTOR SYSTEM: The tone was minimally increased in all four extremities with a degree of gegenhalten. Examination of muscle mass revealed no focal wasting. Examination of power was impossible to perform on individual muscle groups because of her inability to cooperate, however, she did move all four extremities relatively well. SENSORY EXAMINATION: She responded appropriately to deep pain. She was unable to cooperate for other sensory modalities. REFLEXES: 1+ and bilaterally symmetrical at the biceps, triceps, brachioradialis , and knees. 0 at both ankles. The plantar responses were flexor bilaterally. COORDINATION, STANCE & GAIT: Could not be tested. Impression/Recommendations Diagnostic Impression 1. Ms Kailee Moody is a 78-year-old, right-handed, black lady, with a past history of hypertension, cervical spinal stenosis, dementia, most probably related to Alzheimer disease, and irritable bowel syndrome, who was hospitalized on 07/23/2018 for chest pain and an altered mental state. She has exhibited significant behavioral problems while she has been in the hospital. 2. She feels better. She is still cognitively impoverished. She is still negativistic.There has been no significant change in her neurologic state. 3. On neurological examination at this time, she has a significant aphasia making it impossible to determine how severe her cognitive dysfunction is. She , however, does not demonstrate any focal or lateralizing findings. 4. Laboratory data obtained thus far have revealed a relatively normal CBC. Chemistry panel, which is also relatively normal. Normal TSH. 5. The patient's history and neurological examination are most compatible with an advanced dementia with behavioral problems, which may have worsened because of her new environment. As per the patient, her chest pain has resolved. Recommendations 1. Continue present management. 2. Treatment of behavioral problems as per Dr. Hare. 3. Treatment of cardiac problems as per Dr. Vaca. 4. No further neurological interventions are recommended at this time. Osvaldo Gamez M.D., M.S.P.Rina. OSVALDO GAMEZ Jul 28, 2018 20:50
[2018-07-29] VITALS (7 sets, daily range): BP systolic 106–152; BP diastolic 55–69
[2018-07-29] MEDS: HydrALAZINE 50mg tab ORAL SCH ×4 (00:34→18:46)
[2018-07-29] MEDS: Heparin 5000 units/ml inj SUBQ SCH ×3 (05:50→21:41)
[2018-07-29 07:25] LABS: BASOPHILS % (AUTO) 0.5 % (0.0-2.0); EOSINOPHILS % (AUTO) 0.6 % (0.0-3.0); HEMATOCRIT 36.9 % (37.0-47.0); HEMOGLOBIN 12.3 G/DL (12.0-16.0); MEAN CORPUSCULAR VOLUME 88 FL (80-99); MONOCYTES % (AUTO) 5.1 % (1.0-10.0); NEUTROPHILS % (AUTO) 81.8 % (45.0-75.0); PLATELET COUNT 415 K/UL (150-450); RED BLOOD COUNT 4.17 M/UL (4.20-5.40); WHITE BLOOD COUNT 13.8 K/UL (4.8-10.8)
[2018-07-29 07:38] LABS: ANION GAP 10 mmol/L (5-15); BLOOD UREA NITROGEN 26 mg/dL (7-18); CALCIUM 10.1 MG/DL (8.5-10.1); CARBON DIOXIDE 27 MMOL/L (21-32); CHLORIDE 101 MMOL/L (98-107); CREATININE 0.8 MG/DL (0.55-1.30); POTASSIUM 3.5 MMOL/L (3.5-5.1); SODIUM 138 MMOL/L (136-145)
[2018-07-29] MEDS: Docusate 100mg cap ORAL SCH ×2 (08:58→18:39)
[2018-07-29] MEDS: Citalopram Hydrobromide 10mg Tab ORAL SCH (08:58)
[2018-07-29] MEDS: Losartan 50mg tab ORAL SCH (08:59)
--- NOTE | 2018-07-29 10:52 | Pulmonology Progress Note ---
Assessment/Plan Problems: (1) Acute coronary syndrome (2) LBBB (left bundle branch block) (3) Hypertension (4) Alzheimer's dementia (5) H/O neck surgery Assessment/Plan wbc rising, no fevers urine test and start levofloxacine last part of stress test negative enzymes negative PT/OT evaluation bp is not controlled. Add hydralazine 50 q6 hours. pt will go home with family Subjective ROS Limited/Unobtainable: No Constitutional: Reports: no symptoms HEENT: Repors: no symptoms Respiratory: Reports: no symptoms Allergies: Coded Allergies: IODINE (Verified Allergy, Unknown, 07/23/18) PENICILLINS (Verified Allergy, Unknown, 07/23/18) SULFA (SULFONAMIDE ANTIBIOTICS) (Verified Allergy, Unknown, 07/23/18) Objective Last 24 Hour Vital Signs Date Time Temp Pulse Resp B/P (MAP) Pulse Ox O2 Delivery O2 Flow Rate FiO2 07/29/18 09:00 Room Air 07/29/18 08:59 130/60 07/29/18 08:58 61 130/60 07/29/18 08:00 97.7 62 18 130/60 (83) 96 97.7 07/29/18 08:00 61 07/29/18 05:49 139/67 07/29/18 04:00 59 07/29/18 04:00 98.1 65 18 139/67 (91) 97 98.1 07/29/18 00:34 152/56 07/29/18 00:00 72 07/29/18 00:00 98.2 67 20 152/56 (88) 96 98.2 07/28/18 21:00 Room Air 07/28/18 20:00 98.2 81 20 119/67 (84) 99 98.2 07/28/18 20:00 77 07/28/18 18:09 154/71 07/28/18 16:00 97.7 87 18 115/81 (92) 95 97.7 07/28/18 16:00 73 07/28/18 12:00 96.6 70 18 168/73 (104) 100 96.6 07/28/18 12:00 75 07/28/18 10:57 168/73 Intake and Output 07/28/18 07/29/18 19:00 07:00 Intake Total 400 ml 100 ml Output Total 300 ml 200 ml Balance 100 ml -100 ml Intake Oral 400 ml 100 ml Output Urine Total 300 ml 200 ml # Bowel Movements 2 General Appearance: cachetic HEENT: normocephalic Respiratory/Chest: chest wall non-tender, lungs clear, normal breath sounds Breasts: no masses Cardiovascular: normal peripheral pulses Abdomen: normal bowel sounds, no organomegaly Extremities: no cyanosis Skin: no rash, no lesions Laboratory Tests 07/29/18 06:25: White Blood Count 13.8H, Red Blood Count 4.17L, Hemoglobin 12.3, Hematocrit 36.9L, Mean Corpuscular Volume 88, Mean Corpuscular Hemoglobin 29.5, Mean Corpuscular Hemoglobin Concent 33.4, Red Cell Distribution Width 12.0, Platelet Count 415, Mean Platelet Volume 6.2L, Neutrophils (%) (Auto) 81.8H, Lymphocytes (%) (Auto) 12.0L, Monocytes (%) (Auto) 5.1, Eosinophils (%) (Auto) 0.6, Basophils (%) (Auto) 0.5, Sodium Level 138, Potassium Level 3.5, Chloride Level 101, Carbon Dioxide Level 27, Anion Gap 10, Blood Urea Nitrogen 26H, Creatinine 0.8, Estimat Glomerular Filtration Rate , Glucose Level 116H, Calcium Level 10.1 Current Medications Medications (Trade) Dose Ordered Sig/Tona Route PRN Reason Start Time Stop Time Status Last Admin Dose Admin Acetaminophen (Tylenol) 650 mg Q6H PRN ORAL Mild Pain/Temp > 100.5 07/23/18 00:15 08/22/18 00:14 Alprazolam (Xanax) 0.5 mg Q12H PRN ORAL For Anxiety 07/23/18 00:15 07/30/18 00:14 07/23/18 03:22 Amlodipine Besylate (Norvasc) 10 mg DAILY ORAL 07/23/18 09:00 08/22/18 08:59 07/29/18 08:58 Atorvastatin Calcium (Lipitor) 10 mg BEDTIME ORAL 07/25/18 21:00 08/24/18 20:59 07/28/18 21:43 Citalopram Hydrobromide (celeXA) 20 mg DAILY ORAL 07/25/18 09:00 08/24/18 08:59 07/29/18 08:58 Docusate Sodium (Colace) 100 mg TWICE A DAY ORAL 07/23/18 09:00 08/22/18 08:59 07/29/18 08:58 Heparin Sodium (Porcine) (Heparin 5000 units/ml) 5,000 units EVERY 8 HOURS SUBQ 07/23/18 06:00 08/22/18 05:59 07/29/18 05:50 Hydralazine HCl (Apresoline) 50 mg Q6HR ORAL 07/28/18 11:00 08/27/18 10:59 07/29/18 05:49 Lansoprazole (Prevacid) 30 mg ACBREAKFAST ORAL 07/27/18 06:30 08/26/18 06:29 07/29/18 05:49 Levofloxacin 100 ml @ 100 mls/hr Q24H IVPB 07/29/18 10:45 08/05/18 10:44 UNV Losartan Potassium (Cozaar) 100 mg DAILY ORAL 07/23/18 09:00 08/22/18 08:59 07/29/18 08:59 Ondansetron HCl (Zofran) 4 mg Q4H PRN IVP Nausea & Vomiting 07/23/18 00:15 08/22/18 00:14 Polyethylene Glycol (Miralax) 17 gm DAILYPRN PRN ORAL Constipation 07/25/18 13:15 08/24/18 13:14 07/26/18 13:39 Quetiapine Fumarate (SEROquel) 12.5 mg EVERY 4 HOURS PRN ORAL agitation 07/24/18 14:00 08/23/18 13:59 Sodium Phosphate (Fleet's Sodium Phosl Enema) 133 ml PRN PRN RECTAL Constipation 07/26/18 15:15 08/25/18 15:14 Tramadol HCl (Ultram) 100 mg Q12H PRN ORAL Pain (4-10) 07/23/18 07:45 07/30/18 07:44 Opal Olivares MD Jul 29, 2018 10:52
--- NOTE | 2018-07-29 11:36 | Internal Med Progress Note ---
Subjective Date of Service: Jul 29, 2018 Physician Name William,Manuel Attending Physician Wolf Pineda MD Current Medications Medications (Trade) Dose Ordered Sig/Tona Route PRN Reason Start Time Stop Time Status Last Admin Dose Admin Acetaminophen (Tylenol) 650 mg Q6H PRN ORAL Mild Pain/Temp > 100.5 07/23/18 00:15 08/22/18 00:14 Alprazolam (Xanax) 0.5 mg Q12H PRN ORAL For Anxiety 07/23/18 00:15 07/30/18 00:14 07/23/18 03:22 Amlodipine Besylate (Norvasc) 10 mg DAILY ORAL 07/23/18 09:00 08/22/18 08:59 07/29/18 08:58 Atorvastatin Calcium (Lipitor) 10 mg BEDTIME ORAL 07/25/18 21:00 08/24/18 20:59 07/28/18 21:43 Citalopram Hydrobromide (celeXA) 20 mg DAILY ORAL 07/25/18 09:00 08/24/18 08:59 07/29/18 08:58 Docusate Sodium (Colace) 100 mg TWICE A DAY ORAL 07/23/18 09:00 08/22/18 08:59 07/29/18 08:58 Heparin Sodium (Porcine) (Heparin 5000 units/ml) 5,000 units EVERY 8 HOURS SUBQ 07/23/18 06:00 08/22/18 05:59 07/29/18 05:50 Hydralazine HCl (Apresoline) 50 mg Q6HR ORAL 07/28/18 11:00 08/27/18 10:59 07/29/18 05:49 Lansoprazole (Prevacid) 30 mg ACBREAKFAST ORAL 07/27/18 06:30 08/26/18 06:29 07/29/18 05:49 Levofloxacin 50 ml @ 50 mls/hr Q24H IVPB 07/30/18 12:00 08/06/18 11:59 Levofloxacin 100 ml @ 100 mls/hr ONCE ONCE IVPB 07/29/18 12:00 07/29/18 12:59 Losartan Potassium (Cozaar) 100 mg DAILY ORAL 07/23/18 09:00 08/22/18 08:59 07/29/18 08:59 Ondansetron HCl (Zofran) 4 mg Q4H PRN IVP Nausea & Vomiting 07/23/18 00:15 08/22/18 00:14 Polyethylene Glycol (Miralax) 17 gm DAILYPRN PRN ORAL Constipation 07/25/18 13:15 08/24/18 13:14 07/26/18 13:39 Quetiapine Fumarate (SEROquel) 12.5 mg EVERY 4 HOURS PRN ORAL agitation 07/24/18 14:00 08/23/18 13:59 Sodium Phosphate (Fleet's Sodium Phosl Enema) 133 ml PRN PRN RECTAL Constipation 07/26/18 15:15 08/25/18 15:14 Tramadol HCl (Ultram) 100 mg Q12H PRN ORAL Pain (4-10) 07/23/18 07:45 07/30/18 07:44 Allergies: Coded Allergies: IODINE (Verified Allergy, Unknown, 07/23/18) PENICILLINS (Verified Allergy, Unknown, 07/23/18) SULFA (SULFONAMIDE ANTIBIOTICS) (Verified Allergy, Unknown, 07/23/18) ROS Limited/Unobtainable: No Constitutional: Reports: no symptoms HEENT: Reports: no symptoms Cardiovascular: Reports: no symptoms Respiratory: Reports: no symptoms Gastrointestinal/Abdominal: Reports: no symptoms Genitourinary: Reports: no symptoms Neurologic/Psychiatric: Reports: no symptoms Subjective 78 YO F admitted with chief complaint of chest pain. Now bradycardia. Cover for Int Med-Dr Pineda. More alert today; worsening leukocytosis. Objective Last Vital Signs Date Time Temp Pulse Resp B/P (MAP) Pulse Ox O2 Delivery O2 Flow Rate FiO2 07/29/18 09:00 Room Air 07/29/18 08:59 130/60 07/29/18 08:58 61 07/29/18 08:00 97.7 18 96 97.7 Laboratory Tests Test 07/29/18 06:25 White Blood Count 13.8 K/UL (4.8-10.8) H Red Blood Count 4.17 M/UL (4.20-5.40) L Hemoglobin 12.3 G/DL (12.0-16.0) Hematocrit 36.9 % (37.0-47.0) L Mean Corpuscular Volume 88 FL (80-99) Mean Corpuscular Hemoglobin 29.5 PG (27.0-31.0) Mean Corpuscular Hemoglobin Concent 33.4 G/DL (32.0-36.0) Red Cell Distribution Width 12.0 % (11.6-14.8) Platelet Count 415 K/UL (150-450) Mean Platelet Volume 6.2 FL (6.5-10.1) L Neutrophils (%) (Auto) 81.8 % (45.0-75.0) H Lymphocytes (%) (Auto) 12.0 % (20.0-45.0) L Monocytes (%) (Auto) 5.1 % (1.0-10.0) Eosinophils (%) (Auto) 0.6 % (0.0-3.0) Basophils (%) (Auto) 0.5 % (0.0-2.0) Sodium Level 138 MMOL/L (136-145) Potassium Level 3.5 MMOL/L (3.5-5.1) Chloride Level 101 MMOL/L (98-107) Carbon Dioxide Level 27 MMOL/L (21-32) Anion Gap 10 mmol/L (5-15) Blood Urea Nitrogen 26 mg/dL (7-18) H Creatinine 0.8 MG/DL (0.55-1.30) Estimat Glomerular Filtration Rate mL/min (>60) Glucose Level 116 MG/DL (74-106) H Calcium Level 10.1 MG/DL (8.5-10.1) Intake and Output 07/28/18 07/29/18 19:00 07:00 Intake Total 400 ml 100 ml Output Total 300 ml 200 ml Balance 100 ml -100 ml Intake Oral 400 ml 100 ml Output Urine Total 300 ml 200 ml # Bowel Movements 2 Objective General Appearance: WD/WN, no apparent distress, alert EENT: PERRL/EOMI, normal ENT inspection, TMs normal Neck: non-tender, normal alignment, supple Cardiovascular: normal peripheral pulses, regular rhythm, no gallop/murmur, no JVD, bradycardia Respiratory/Chest: chest wall non-tender, lungs clear, normal breath sounds, no respiratory distress, no accessory muscle use Abdomen: normal bowel sounds, non tender, soft, no organomegaly, no mass Extremities: normal range of motion, non-tender Neurologic: splicer helper II-XII grossly normal, no motor/sensory deficits Skin: normal pigmentation, warm/dry Assessment/Plan Problem List: (1) Cervical stenosis of spinal canal (2) Chest pain Assessment & Plan: s/P stress test on 07/27/18-nonischemic. Ruled out for Acute KS by troponin. See cardiology note (3) Hypertension (4) LBBB (left bundle branch block) (5) Alzheimer's dementia (6) Bradycardia Assessment & Plan: Due to LBBB-see cardiology note. D/C coreg (7) Leukocytosis Assessment & Plan: Check urinalysis; start levaquin Status: progressing Assessment/Plan Discharge planning: [facility] vs hospice Manuel William MD Jul 29, 2018 11:36
--- NOTE | 2018-07-29 12:07 | Cardiac Electrophysiology PN ---
Assessment/Plan Assessment/Plan 1. Atypical Chest pain. The patient was ruled out for myocardial infarction, however, she has underlying left bundle-branch block. Nuclear stress test showed no ischemia 2. Profound bradycardia with heart rate 40 as well as complete left bundle-branch block. Resolved off Coreg 3. Hypertension. Continue amlodipine 10 mg and Losartan 100 mg daily. 4. Complete left bundle-branch block. 5. Anxiety. 6. Dementia. 7. Leukocytosis WBC 13.8. Getting Urinalysis DW RN Subjective Subjective In SR with LBBB.Family at bedside. Sleepy. Nuclear stress test showed no evidence of ischemia Objective Last 24 Hour Vital Signs Date Time Temp Pulse Resp B/P (MAP) Pulse Ox O2 Delivery O2 Flow Rate FiO2 07/29/18 09:00 Room Air 07/29/18 08:59 130/60 07/29/18 08:58 61 130/60 07/29/18 08:00 97.7 62 18 130/60 (83) 96 97.7 07/29/18 08:00 61 07/29/18 05:49 139/67 07/29/18 04:00 59 07/29/18 04:00 98.1 65 18 139/67 (91) 97 98.1 07/29/18 00:34 152/56 07/29/18 00:00 72 07/29/18 00:00 98.2 67 20 152/56 (88) 96 98.2 07/28/18 21:00 Room Air 07/28/18 20:00 98.2 81 20 119/67 (84) 99 98.2 07/28/18 20:00 77 07/28/18 18:09 154/71 07/28/18 16:00 97.7 87 18 115/81 (92) 95 97.7 07/28/18 16:00 73 Intake and Output 07/28/18 07/29/18 19:00 07:00 Intake Total 400 ml 100 ml Output Total 300 ml 200 ml Balance 100 ml -100 ml Intake Oral 400 ml 100 ml Output Urine Total 300 ml 200 ml # Bowel Movements 2 Laboratory Tests Test 07/29/18 06:25 White Blood Count 13.8 K/UL (4.8-10.8) H Red Blood Count 4.17 M/UL (4.20-5.40) L Hemoglobin 12.3 G/DL (12.0-16.0) Hematocrit 36.9 % (37.0-47.0) L Mean Corpuscular Volume 88 FL (80-99) Mean Corpuscular Hemoglobin 29.5 PG (27.0-31.0) Mean Corpuscular Hemoglobin Concent 33.4 G/DL (32.0-36.0) Red Cell Distribution Width 12.0 % (11.6-14.8) Platelet Count 415 K/UL (150-450) Mean Platelet Volume 6.2 FL (6.5-10.1) L Neutrophils (%) (Auto) 81.8 % (45.0-75.0) H Lymphocytes (%) (Auto) 12.0 % (20.0-45.0) L Monocytes (%) (Auto) 5.1 % (1.0-10.0) Eosinophils (%) (Auto) 0.6 % (0.0-3.0) Basophils (%) (Auto) 0.5 % (0.0-2.0) Sodium Level 138 MMOL/L (136-145) Potassium Level 3.5 MMOL/L (3.5-5.1) Chloride Level 101 MMOL/L (98-107) Carbon Dioxide Level 27 MMOL/L (21-32) Anion Gap 10 mmol/L (5-15) Blood Urea Nitrogen 26 mg/dL (7-18) H Creatinine 0.8 MG/DL (0.55-1.30) Estimat Glomerular Filtration Rate mL/min (>60) Glucose Level 116 MG/DL (74-106) H Calcium Level 10.1 MG/DL (8.5-10.1) Objective HEAD AND NECK: No JVD or carotid bruit. LUNGS: Clear. CARDIOVASCULAR: Nl S1 and S2 with no gallop or murmur. ABDOMEN: Soft. EXTREMITIES: No edema. Jose Juan Vaca MD Jul 29, 2018 12:07
[2018-07-29] MEDS ORDERED: traMADol 50mg tab ORAL PRN ×2 (15:00→17:22)
[2018-07-29 16:20] LABS: APPEARANCE,URINE CLEAR; BILIRUBIN, URINE NEGATIVE (NEGATIVE); GLUCOSE, URINE (UA) NEGATIVE (NEGATIVE); KETONES,URINE NEGATIVE (NEGATIVE); LEUKOCYTE ESTERASE ,URINE NEGATIVE (NEGATIVE); NITRITE,URINE NEGATIVE (NEGATIVE); PH,URINE 5 (4.5-8.0); PROTEIN,URINE 2+ (NEGATIVE); UROBILINOGEN,URINE NORMAL MG/DL (0.0-1.0)
[2018-07-29 16:21] LABS: COLOR,URINE YELLOW
[2018-07-29] MEDS ORDERED: ALPRAZolam 0.5mg tab ORAL PRN (17:17)
[2018-07-29] MEDS ORDERED: Fleet's Enema 133ml RECTAL PRN (17:18)
[2018-07-29] MEDS ORDERED: Miralax 17gm pkt ORAL PRN (17:22)
--- NOTE | 2018-07-29 19:18 | Cardiology Report ---
APPROVED REPORT EKG Measurement Heart [id number] NM [id number] Normal sinus rhythm Left bundle branch block Abnormal ECG
--- NOTE | 2018-07-29 19:27 | Neurology Progress Note ---
Interim History Interim History Interim History Ms. Paulo Moody feels better. Her son and [id number] are visiting her. She is still cognitively impoverished. She is more cooperative. There has been no significant change in her neurologic state. Review of Systems Neuro Review of Systems Benign. Objective Physical Exam Last Vital Signs Date Time Temp Pulse Resp B/P (MAP) Pulse Ox O2 Delivery O2 Flow Rate FiO2 07/29/18 18:46 142/105 07/29/18 16:50 98.4 74 20 97 98.4 07/29/18 09:00 Room Air Laboratory Tests Test 07/29/18 06:25 07/29/18 14:20 White Blood Count 13.8 K/UL (4.8-10.8) H Red Blood Count 4.17 M/UL (4.20-5.40) L Hemoglobin 12.3 G/DL (12.0-16.0) Hematocrit 36.9 % (37.0-47.0) L Mean Corpuscular Volume 88 FL (80-99) Mean Corpuscular Hemoglobin 29.5 PG (27.0-31.0) Mean Corpuscular Hemoglobin Concent 33.4 G/DL (32.0-36.0) Red Cell Distribution Width 12.0 % (11.6-14.8) Platelet Count 415 K/UL (150-450) Mean Platelet Volume 6.2 FL (6.5-10.1) L Neutrophils (%) (Auto) 81.8 % (45.0-75.0) H Lymphocytes (%) (Auto) 12.0 % (20.0-45.0) L Monocytes (%) (Auto) 5.1 % (1.0-10.0) Eosinophils (%) (Auto) 0.6 % (0.0-3.0) Basophils (%) (Auto) 0.5 % (0.0-2.0) Sodium Level 138 MMOL/L (136-145) Potassium Level 3.5 MMOL/L (3.5-5.1) Chloride Level 101 MMOL/L (98-107) Carbon Dioxide Level 27 MMOL/L (21-32) Anion Gap 10 mmol/L (5-15) Blood Urea Nitrogen 26 mg/dL (7-18) H Creatinine 0.8 MG/DL (0.55-1.30) Estimat Glomerular Filtration Rate mL/min (>60) Glucose Level 116 MG/DL (74-106) H Calcium Level 10.1 MG/DL (8.5-10.1) Urine Color Yellow Urine Appearance Clear Urine pH 5 (4.5-8.0) Urine Specific [place] 1.020 (1.005-1.035) Urine Protein 2+ (NEGATIVE) H Urine Glucose (UA) Negative (NEGATIVE) Urine Ketones Negative (NEGATIVE) Urine Blood Negative (NEGATIVE) Urine Nitrite Negative (NEGATIVE) Urine Bilirubin Negative (NEGATIVE) Urine Urobilinogen Normal MG/DL (0.0-1.0) Urine Leukocyte Esterase Negative (NEGATIVE) Urine RBC 0-2 /HPF (0 - 2) Urine WBC 0-2 /HPF (0 - 2) Urine Squamous Epithelial Cells None /LPF (NONE/OCC) Urine Uric Acid Crystals Few /LPF (NONE) H Urine Amorphous Sediment Many /LPF (NONE) H Urine Bacteria Few /HPF (NONE) Neurologic Exam Objective PHYSICAL EXAMINATION: GENERAL: She is a well-developed, well-nourished, black lady, lying in bed, in no acute distress. HEAD: Normocephalic and atraumatic. NECK: No neck rigidity was observed. EENT: Examination benign. NEUROLOGICAL EXAMINATION: MENTAL STATUS EXAMINATION: She was awake and alert. She was oriented to self only. She had no idea where she was or what the date was. She was able to recall 3/3 words immediately, but could not remember any of them in 1 minute and 3 minutes. She was unable to tell me who the present President was and who prior Presidents were. Her mathematical skills were impaired. Her visuospatial function was also impaired. It should be noted that she had a significant aphasia making mental status testing quite difficult. SPEECH: She had no dysarthria. LANGUAGE: She had problems with comprehension, repetition, naming, and expression of language. CRANIAL NERVE EXAMINATION: II: She did blink to threat. She was unable to cooperate for confrontation testing. III, IV & : The external ocular movements were full and the pupils 3 mm in diameter, equal, round, regular, and reactive to light. V: She had normal facial sensations, and the temporales, masseters, and pterygoids functioned normally. VII: She had normal facial expressions and no facial asymmetry. VIII: She was able to hear well bilaterally and had no nystagmus. IX: The palate moved symmetrically on phonation. X: She had no hoarseness of voice. XI: The sternocleidomastoids and trapezii functioned normally. XII: The tongue was in the midline without any fasciculations or atrophy. MOTOR SYSTEM: The tone was minimally increased in all four extremities. Examination of muscle mass revealed no focal wasting. Examination of power was impossible to perform on individual muscle groups because of her inability to cooperate, however, she did move all four extremities relatively well. SENSORY EXAMINATION: She responded appropriately to deep pain. She was unable to cooperate for other sensory modalities. REFLEXES: 1+ and bilaterally symmetrical at the biceps, triceps, brachioradialis , and knees. 0 at both ankles. The plantar responses were flexor bilaterally. COORDINATION, STANCE & GAIT: Could not be tested. Impression/Recommendations Diagnostic Impression 1. Ms Kailee Moody is a 78-year-old, right-handed, black lady, with a past history of hypertension, cervical spinal stenosis, dementia, most probably related to Alzheimer disease, and irritable bowel syndrome, who was hospitalized on 07/23/2018 for chest pain and an altered mental state. She has exhibited significant behavioral problems while she has been in the hospital. 2. She feels better. She is still cognitively impoverished. She is more cooperative.There has been no significant change in her neurologic state. 3. On neurological examination at this time, she has a significant aphasia making it impossible to determine how severe her cognitive dysfunction is. She , however, does not demonstrate any focal or lateralizing findings. 4. Laboratory data obtained thus far have revealed a relatively normal CBC. Chemistry panel, which is also relatively normal. Normal TSH. 5. The patient's history and neurological examination are most compatible with an advanced dementia with behavioral problems, which may have worsened because of her new environment. As per the patient, her chest pain has resolved. Recommendations 1. Continue present management. 2. Treatment of behavioral problems as per Dr. Hare. 3. Treatment of cardiac problems as per Dr. Vaca. 4. No further neurological interventions are recommended at this time. Osvaldo Quiles M.D., M.S.OSVALDO GOYAL Jul 29, 2018 19:27
--- NOTE | 2018-07-29 19:57 | General Progress Note ---
Assessment/Plan Assessment/Plan encephalopathy due to [facility] [place] celexa seroquel prn provided ro/st Subjective Date patient seen: Jul 29, 2018 Neurologic/Psychiatric: Reports: anxiety, depressed Allergies: Coded Allergies: IODINE (Verified Allergy, Unknown, 07/23/18) PENICILLINS (Verified Allergy, Unknown, 07/23/18) SULFA (SULFONAMIDE ANTIBIOTICS) (Verified Allergy, Unknown, 07/23/18) Objective Last 24 Hour Vital Signs Date Time Temp Pulse Resp B/P (MAP) Pulse Ox O2 Delivery O2 Flow Rate FiO2 07/29/18 18:46 142/105 07/29/18 16:50 98.4 74 20 106/69 (81) 97 98.4 07/29/18 12:29 130/55 07/29/18 12:00 98.2 70 20 130/55 (80) 96 98.2 07/29/18 12:00 63 07/29/18 09:00 Room Air 07/29/18 08:59 130/60 07/29/18 08:58 61 130/60 07/29/18 08:00 97.7 62 18 130/60 (83) 96 97.7 07/29/18 08:00 61 07/29/18 05:49 139/67 07/29/18 04:00 59 07/29/18 04:00 98.1 65 18 139/67 (91) 97 98.1 07/29/18 00:34 152/56 07/29/18 00:00 72 07/29/18 00:00 98.2 67 20 152/56 (88) 96 98.2 07/28/18 21:00 Room Air 07/28/18 20:00 98.2 81 20 119/67 (84) 99 98.2 07/28/18 20:00 77 Intake and Output 07/28/18 07/29/18 19:00 07:00 Intake Total 400 ml 100 ml Output Total 300 ml 200 ml Balance 100 ml -100 ml Intake Oral 400 ml 100 ml Output Urine Total 300 ml 200 ml # Bowel Movements 2 Laboratory Tests 07/29/18 06:25: White Blood Count 13.8H, Red Blood Count 4.17L, Hemoglobin 12.3, Hematocrit 36.9L, Mean Corpuscular Volume 88, Mean Corpuscular Hemoglobin 29.5, Mean Corpuscular Hemoglobin Concent 33.4, Red Cell Distribution Width 12.0, Platelet Count 415, Mean Platelet Volume 6.2L, Neutrophils (%) (Auto) 81.8H, Lymphocytes (%) (Auto) 12.0L, Monocytes (%) (Auto) 5.1, Eosinophils (%) (Auto) 0.6, Basophils (%) (Auto) 0.5, Sodium Level 138, Potassium Level 3.5, Chloride Level 101, Carbon Dioxide Level 27, Anion Gap 10, Blood Urea Nitrogen 26H, Creatinine 0.8, Estimat Glomerular Filtration Rate , Glucose Level 116H, Calcium Level 10.1 07/29/18 14:20: Urine Color Yellow, Urine Appearance Clear, Urine pH 5, Urine Specific [place] 1.020, Urine Protein 2+H, Urine Glucose (UA) Negative, Urine Ketones Negative, Urine Blood Negative, Urine Nitrite Negative, Urine Bilirubin Negative, Urine Urobilinogen Normal, Urine Leukocyte Esterase Negative, Urine RBC 0-2, Urine WBC 0-2, Urine Squamous Epithelial Cells None, Urine Uric Acid Crystals FewH, Urine Amorphous Sediment ManyH, Urine Bacteria Few Height (Feet): 5 Height (Inches): 4.00 Weight (Pounds): 127 Sarah Beth Hare MD Jul 29, 2018 19:57
[2018-07-30] MEDS: HydrALAZINE 50mg tab ORAL SCH ×3 (00:02→12:40)
[2018-07-30 04:00] VITALS: BP 154/58
[2018-07-30] MEDS: Heparin 5000 units/ml inj SUBQ SCH ×2 (05:53→13:16)
[2018-07-30 07:18] LABS: BASOPHILS % (AUTO) 0.6 % (0.0-2.0); HEMOGLOBIN 11.9 G/DL (12.0-16.0); LYMPHOCYTES % (AUTO) 18.7 % (20.0-45.0); MEAN CORPUSCULAR VOLUME 89 FL (80-99); MONOCYTES % (AUTO) 8.3 % (1.0-10.0); NEUTROPHILS % (AUTO) 70.4 % (45.0-75.0); PLATELET COUNT 406 K/UL (150-450); RED BLOOD COUNT 4.06 M/UL (4.20-5.40); RED CELL DISTRIBUTION WIDTH 11.5 % (11.6-14.8); WHITE BLOOD COUNT 9.4 K/UL (4.8-10.8)
[2018-07-30 07:25] LABS: BLOOD UREA NITROGEN 29 mg/dL (7-18); CALCIUM 9.8 MG/DL (8.5-10.1); CHLORIDE 101 MMOL/L (98-107); CREATININE 0.8 MG/DL (0.55-1.30); POTASSIUM 3.6 MMOL/L (3.5-5.1); SODIUM 137 MMOL/L (136-145)
[2018-07-30 08:00] VITALS: BP 140/51
[2018-07-30] MEDS: Docusate 100mg cap ORAL SCH (08:26)
[2018-07-30] MEDS ORDERED: Citalopram Hydrobromide 10mg Tab ORAL SCH (09:00)
[2018-07-30] MEDS ORDERED: Losartan 50mg tab ORAL SCH (09:00)
[2018-07-30 10:04] LABS: CARBON DIOXIDE 24 MMOL/L (21-32)
[2018-07-30 10:05] LABS: ANION GAP 12 mmol/L (5-15)
--- NOTE | 2018-07-30 10:49 | General Progress Note ---
Assessment/Plan Status: stable, progressing Assessment/Plan [place] [facility] [place]a seroquel prn [place] ro/st Subjective Date patient seen: Jul 30, 2018 Neurologic/Psychiatric: Reports: anxiety Allergies: Coded Allergies: IODINE (Verified Allergy, Unknown, 07/23/18) PENICILLINS (Verified Allergy, Unknown, 07/23/18) SULFA (SULFONAMIDE ANTIBIOTICS) (Verified Allergy, Unknown, 07/23/18) Subjective the pt is more alert and cooperative. she was able to participate more in pt today she still has waxing and waning of consciousness Objective Last 24 Hour Vital Signs Date Time Temp Pulse Resp B/P (MAP) Pulse Ox O2 Delivery O2 Flow Rate FiO2 07/30/18 09:00 Room Air 07/30/18 08:27 140/51 07/30/18 08:25 55 140/51 07/30/18 08:00 98.1 55 18 140/51 (80) 98 98.1 07/30/18 05:50 61 07/30/18 04:00 97.7 52 16 154/58 (90) 99 97.7 07/30/18 00:02 133/61 07/29/18 23:44 97.9 64 18 133/61 (85) 96 97.9 07/29/18 20:24 Room Air 07/29/18 20:14 98.1 68 19 130/60 (83) 96 98.1 07/29/18 18:46 142/105 07/29/18 16:50 98.4 74 20 106/69 (81) 97 98.4 07/29/18 12:29 130/55 07/29/18 12:00 98.2 70 20 130/55 (80) 96 98.2 07/29/18 12:00 63 Intake and Output 07/29/18 07/30/18 19:00 07:00 Intake Total 340 ml Output Total 150 ml Balance 340 ml -150 ml Intake Oral 240 ml IV Total 100 ml Output Urine Total 150 ml # Voids 2 # Bowel Movements 1 Laboratory Tests 07/29/18 14:20: Urine Color Yellow, Urine Appearance Clear, Urine pH 5, Urine Specific [place] 1.020, Urine Protein 2+H, Urine Glucose (UA) Negative, Urine Ketones Negative, Urine Blood Negative, Urine Nitrite Negative, Urine Bilirubin Negative, Urine Urobilinogen Normal, Urine Leukocyte Esterase Negative, Urine RBC 0-2, Urine WBC 0-2, Urine Squamous Epithelial Cells None, Urine Uric Acid Crystals FewH, Urine Amorphous Sediment ManyH, Urine Bacteria Few 07/30/18 05:40: White Blood Count 9.4, Red Blood Count 4.06L, Hemoglobin 11.9L, Hematocrit 36.0L , Mean Corpuscular Volume 89, Mean Corpuscular Hemoglobin 29.3, Mean Corpuscular Hemoglobin Concent 33.1, Red Cell Distribution Width 11.5L, Platelet Count 406, Mean Platelet Volume 6.1L, Neutrophils (%) (Auto) 70.4, Lymphocytes (%) (Auto) 18.7L, Monocytes (%) (Auto) 8.3, Eosinophils (%) (Auto) 2.0, Basophils (%) (Auto) 0.6, Sodium Level 137, Potassium Level 3.6, Chloride Level 101, Carbon Dioxide Level 24, Anion Gap 12, Blood Urea Nitrogen 29H, Creatinine 0.8, Estimat Glomerular Filtration Rate , Glucose Level 90, Calcium Level 9.8 Height (Feet): 5 Height (Inches): 4.00 Weight (Pounds): 127 General Appearance: no apparent distress, alert, confused Sarah Beth Hare MD Jul 30, 2018 10:49
--- NOTE | 2018-07-30 10:56 | Cardiac Electrophysiology PN ---
Assessment/Plan Assessment/Plan 1. Atypical Chest pain. The patient was ruled out for myocardial infarction, however, she has underlying left bundle-branch block. Nuclear stress test showed no ischemia 2. Profound bradycardia with heart rate 40 as well as complete left bundle-branch block. Resolved off Coreg 3. Hypertension. Continue amlodipine 10 mg and Losartan 100 mg daily. 4. Complete left bundle-branch block. 5. Anxiety. 6. Dementia. 7. Leukocytosis WBC 13.8. On Abx DW RN Subjective Subjective Feeling better. Wants to go home. Nuclear stress test showed no evidence of ischemia Objective Last 24 Hour Vital Signs Date Time Temp Pulse Resp B/P (MAP) Pulse Ox O2 Delivery O2 Flow Rate FiO2 07/30/18 09:00 Room Air 07/30/18 08:27 140/51 07/30/18 08:25 55 140/51 07/30/18 08:00 98.1 55 18 140/51 (80) 98 98.1 07/30/18 05:50 61 07/30/18 04:00 97.7 52 16 154/58 (90) 99 97.7 07/30/18 00:02 133/61 07/29/18 23:44 97.9 64 18 133/61 (85) 96 97.9 07/29/18 20:24 Room Air 07/29/18 20:14 98.1 68 19 130/60 (83) 96 98.1 07/29/18 18:46 142/105 07/29/18 16:50 98.4 74 20 106/69 (81) 97 98.4 07/29/18 12:29 130/55 07/29/18 12:00 98.2 70 20 130/55 (80) 96 98.2 07/29/18 12:00 63 Intake and Output 07/29/18 07/30/18 19:00 07:00 Intake Total 340 ml Output Total 150 ml Balance 340 ml -150 ml Intake Oral 240 ml IV Total 100 ml Output Urine Total 150 ml # Voids 2 # Bowel Movements 1 Laboratory Tests Test 07/29/18 14:20 07/30/18 05:40 Urine Color Yellow Urine Appearance Clear Urine pH 5 (4.5-8.0) Urine Specific [place] 1.020 (1.005-1.035) Urine Protein 2+ (NEGATIVE) H Urine Glucose (UA) Negative (NEGATIVE) Urine Ketones Negative (NEGATIVE) Urine Blood Negative (NEGATIVE) Urine Nitrite Negative (NEGATIVE) Urine Bilirubin Negative (NEGATIVE) Urine Urobilinogen Normal MG/DL (0.0-1.0) Urine Leukocyte Esterase Negative (NEGATIVE) Urine RBC 0-2 /HPF (0 - 2) Urine WBC 0-2 /HPF (0 - 2) Urine Squamous Epithelial Cells None /LPF (NONE/OCC) Urine Uric Acid Crystals Few /LPF (NONE) H Urine Amorphous Sediment Many /LPF (NONE) H Urine Bacteria Few /HPF (NONE) White Blood Count 9.4 K/UL (4.8-10.8) Red Blood Count 4.06 M/UL (4.20-5.40) L Hemoglobin 11.9 G/DL (12.0-16.0) L Hematocrit 36.0 % (37.0-47.0) L Mean Corpuscular Volume 89 FL (80-99) Mean Corpuscular Hemoglobin 29.3 PG (27.0-31.0) Mean Corpuscular Hemoglobin Concent 33.1 G/DL (32.0-36.0) Red Cell Distribution Width 11.5 % (11.6-14.8) L Platelet Count 406 K/UL (150-450) Mean Platelet Volume 6.1 FL (6.5-10.1) L Neutrophils (%) (Auto) 70.4 % (45.0-75.0) Lymphocytes (%) (Auto) 18.7 % (20.0-45.0) L Monocytes (%) (Auto) 8.3 % (1.0-10.0) Eosinophils (%) (Auto) 2.0 % (0.0-3.0) Basophils (%) (Auto) 0.6 % (0.0-2.0) Sodium Level 137 MMOL/L (136-145) Potassium Level 3.6 MMOL/L (3.5-5.1) Chloride Level 101 MMOL/L (98-107) Carbon Dioxide Level 24 MMOL/L (21-32) Anion Gap 12 mmol/L (5-15) Blood Urea Nitrogen 29 mg/dL (7-18) H Creatinine 0.8 MG/DL (0.55-1.30) Estimat Glomerular Filtration Rate mL/min (>60) Glucose Level 90 MG/DL (74-106) Calcium Level 9.8 MG/DL (8.5-10.1) Microbiology Date/Time Source Procedure Growth Status 07/29/18 14:20 Urine,Clean Catch Urine Culture - Preliminary NO GROWTH Resulted Objective HEAD AND NECK: No JVD or carotid bruit. LUNGS: Clear. CARDIOVASCULAR: Nl S1 and S2 with no gallop or murmur. ABDOMEN: Soft. EXTREMITIES: No edema. Jose Juan Vaca MD Jul 30, 2018 10:56
[2018-07-30 12:00] VITALS: BP 137/63
[2018-07-30] MEDS ORDERED: Levofloxacin 250mg/D5W 50ml IVPB SCH (12:00)
[2018-07-30 12:40] VITALS: BP 137/63
[2018-07-30] MEDS ORDERED: SEROQUEL25 MG ORAL (14:19)
[2018-07-30] MEDS ORDERED: APRESOLINE50 MG ORAL (14:19)
[2018-07-30] MEDS ORDERED: COZAAR50 MG ORAL (14:19)
[2018-07-30] MEDS ORDERED: NORVASC10 MG ORAL (14:19)
--- NOTE | 2018-07-30 14:23 | Pulmonology Progress Note ---
Assessment/Plan Problems: (1) Acute coronary syndrome (2) LBBB (left bundle branch block) (3) Hypertension (4) Alzheimer's dementia (5) H/O neck surgery Assessment/Plan wbc wnl, no fevers urine test and start levofloxacine last part of stress test negative enzymes negative PT/OT evaluation BP better pt will go home with family Subjective ROS Limited/Unobtainable: No Constitutional: Reports: no symptoms HEENT: Repors: no symptoms Respiratory: Reports: no symptoms Allergies: Coded Allergies: IODINE (Verified Allergy, Unknown, 07/23/18) PENICILLINS (Verified Allergy, Unknown, 07/23/18) SULFA (SULFONAMIDE ANTIBIOTICS) (Verified Allergy, Unknown, 07/23/18) Objective Last 24 Hour Vital Signs Date Time Temp Pulse Resp B/P (MAP) Pulse Ox O2 Delivery O2 Flow Rate FiO2 07/30/18 12:40 137/63 07/30/18 12:00 98.9 67 19 137/63 (87) 98 98.9 07/30/18 09:00 Room Air 07/30/18 08:27 140/51 07/30/18 08:25 55 140/51 07/30/18 08:00 98.1 55 18 140/51 (80) 98 98.1 07/30/18 05:50 61 07/30/18 04:00 97.7 52 16 154/58 (90) 99 97.7 07/30/18 00:02 133/61 07/29/18 23:44 97.9 64 18 133/61 (85) 96 97.9 07/29/18 20:24 Room Air 07/29/18 20:14 98.1 68 19 130/60 (83) 96 98.1 07/29/18 18:46 142/105 07/29/18 16:50 98.4 74 20 106/69 (81) 97 98.4 Intake and Output 07/29/18 07/30/18 19:00 07:00 Intake Total 340 ml Output Total 150 ml Balance 340 ml -150 ml Intake Oral 240 ml IV Total 100 ml Output Urine Total 150 ml # Voids 2 # Bowel Movements 1 General Appearance: WD/WN HEENT: normocephalic, atraumatic Respiratory/Chest: chest wall non-tender, lungs clear Breasts: no masses Cardiovascular: normal peripheral pulses, normal rate Abdomen: normal bowel sounds, soft, non tender Genitourinary: normal external genitalia Skin: no lesions Microbiology Date/Time Source Procedure Growth Status 07/29/18 14:20 Urine,Clean Catch Urine Culture - Preliminary NO GROWTH Resulted Laboratory Tests 07/30/18 05:40: White Blood Count 9.4, Red Blood Count 4.06L, Hemoglobin 11.9L, Hematocrit 36.0L , Mean Corpuscular Volume 89, Mean Corpuscular Hemoglobin 29.3, Mean Corpuscular Hemoglobin Concent 33.1, Red Cell Distribution Width 11.5L, Platelet Count 406, Mean Platelet Volume 6.1L, Neutrophils (%) (Auto) 70.4, Lymphocytes (%) (Auto) 18.7L, Monocytes (%) (Auto) 8.3, Eosinophils (%) (Auto) 2.0, Basophils (%) (Auto) 0.6, Sodium Level 137, Potassium Level 3.6, Chloride Level 101, Carbon Dioxide Level 24, Anion Gap 12, Blood Urea Nitrogen 29H, Creatinine 0.8, Estimat Glomerular Filtration Rate , Glucose Level 90, Calcium Level 9.8 Current Medications Medications (Trade) Dose Ordered Sig/Tona Route PRN Reason Start Time Stop Time Status Last Admin Dose Admin Acetaminophen (Tylenol) 650 mg Q6H PRN ORAL Mild Pain/Temp > 100.5 07/29/18 17:17 08/22/18 17:16 Alprazolam (Xanax) 0.5 mg Q12H PRN ORAL For Anxiety 07/29/18 17:17 08/05/18 17:16 Amlodipine Besylate (Norvasc) 10 mg DAILY ORAL 07/30/18 09:00 08/22/18 08:59 07/30/18 08:25 Atorvastatin Calcium (Lipitor) 10 mg BEDTIME ORAL 07/29/18 21:00 08/24/18 20:59 07/29/18 21:40 Citalopram Hydrobromide (celeXA) 20 mg DAILY ORAL 07/30/18 09:00 08/24/18 08:59 07/30/18 08:26 Docusate Sodium (Colace) 100 mg TWICE A DAY ORAL 07/29/18 18:00 08/22/18 08:59 07/30/18 08:26 Heparin Sodium (Porcine) (Heparin 5000 units/ml) 5,000 units EVERY 8 HOURS SUBQ 07/29/18 22:00 08/22/18 05:59 07/30/18 13:16 Hydralazine HCl (Apresoline) 50 mg Q6HR ORAL 07/29/18 18:00 08/27/18 10:59 07/30/18 12:40 Lansoprazole (Prevacid) 30 mg ACBREAKFAST ORAL 07/30/18 06:30 08/26/18 06:29 07/30/18 05:51 Levofloxacin 50 ml @ 50 mls/hr Q24H IVPB 07/30/18 12:00 08/06/18 11:59 07/30/18 12:41 Losartan Potassium (Cozaar) 100 mg DAILY ORAL 07/30/18 09:00 08/22/18 08:59 07/30/18 08:27 Ondansetron HCl (Zofran) 4 mg Q4H PRN IVP Nausea & Vomiting 07/29/18 16:15 08/22/18 00:14 Polyethylene Glycol (Miralax) 17 gm DAILYPRN PRN ORAL Constipation 07/29/18 17:22 08/28/18 17:21 Quetiapine Fumarate (SEROquel) 12.5 mg Q4H PRN ORAL agitation 07/29/18 17:00 08/28/18 16:59 Sodium Phosphate (Fleet's Sodium Phosl Enema) 133 ml PRN PRN RECTAL Constipation 07/29/18 17:18 08/28/18 17:17 Tramadol HCl (Ultram) 100 mg Q12H PRN ORAL Pain (4-10) 07/29/18 17:22 08/05/18 17:21 Opal Olivares MD Jul 30, 2018 14:23
[2018-07-30] MEDS ORDERED: ALPRAZolam 0.5mg tab ORAL PRN (15:00)
--- NOTE | 2018-07-30 16:59 | Internal Med Progress Note ---
Subjective Date of Service: Jul 30, 2018 Physician Name Manuel William Attending Physician Wolf Pineda MD Current Medications Medications (Trade) Dose Ordered Sig/Tona Route PRN Reason Start Time Stop Time Status Last Admin Dose Admin Acetaminophen (Tylenol) 650 mg Q6H PRN ORAL Mild Pain/Temp > 100.5 07/29/18 17:17 08/22/18 17:16 Alprazolam (Xanax) 0.5 mg Q12H PRN ORAL For Anxiety 07/29/18 17:17 08/05/18 17:16 Amlodipine Besylate (Norvasc) 10 mg DAILY ORAL 07/30/18 09:00 08/22/18 08:59 07/30/18 08:25 Atorvastatin Calcium (Lipitor) 10 mg BEDTIME ORAL 07/29/18 21:00 08/24/18 20:59 07/29/18 21:40 Citalopram Hydrobromide (celeXA) 20 mg DAILY ORAL 07/30/18 09:00 08/24/18 08:59 07/30/18 08:26 Docusate Sodium (Colace) 100 mg TWICE A DAY ORAL 07/29/18 18:00 08/22/18 08:59 07/30/18 08:26 Heparin Sodium (Porcine) (Heparin 5000 units/ml) 5,000 units EVERY 8 HOURS SUBQ 07/29/18 22:00 08/22/18 05:59 07/30/18 13:16 Hydralazine HCl (Apresoline) 50 mg Q6HR ORAL 07/29/18 18:00 08/27/18 10:59 07/30/18 12:40 Lansoprazole (Prevacid) 30 mg ACBREAKFAST ORAL 07/30/18 06:30 08/26/18 06:29 07/30/18 05:51 Levofloxacin 50 ml @ 50 mls/hr Q24H IVPB 07/30/18 12:00 08/06/18 11:59 07/30/18 12:41 Losartan Potassium (Cozaar) 100 mg DAILY ORAL 07/30/18 09:00 08/22/18 08:59 07/30/18 08:27 Ondansetron HCl (Zofran) 4 mg Q4H PRN IVP Nausea & Vomiting 07/29/18 16:15 08/22/18 00:14 Polyethylene Glycol (Miralax) 17 gm DAILYPRN PRN ORAL Constipation 07/29/18 17:22 08/28/18 17:21 Quetiapine Fumarate (SEROquel) 12.5 mg Q4H PRN ORAL agitation 07/29/18 17:00 08/28/18 16:59 Sodium Phosphate (Fleet's Sodium Phosl Enema) 133 ml PRN PRN RECTAL Constipation 07/29/18 17:18 08/28/18 17:17 Tramadol HCl (Ultram) 100 mg Q12H PRN ORAL Pain (4-10) 07/29/18 17:22 08/05/18 17:21 Allergies: Coded Allergies: IODINE (Verified Allergy, Unknown, 07/23/18) PENICILLINS (Verified Allergy, Unknown, 07/23/18) SULFA (SULFONAMIDE ANTIBIOTICS) (Verified Allergy, Unknown, 07/23/18) ROS Limited/Unobtainable: No Constitutional: Reports: no symptoms HEENT: Reports: no symptoms Cardiovascular: Reports: no symptoms Respiratory: Reports: no symptoms Gastrointestinal/Abdominal: Reports: no symptoms Genitourinary: Reports: no symptoms Neurologic/Psychiatric: Reports: no symptoms Subjective 78 YO F admitted with chief complaint of chest pain. Now bradycardia. Cover for Int Med-Dr Pineda. More alert today; improving leukocytosis. Objective Last Vital Signs Date Time Temp Pulse Resp B/P (MAP) Pulse Ox O2 Delivery O2 Flow Rate FiO2 07/30/18 12:40 137/63 07/30/18 12:00 98.9 67 19 98 98.9 07/30/18 09:00 Room Air Laboratory Tests Test 07/30/18 05:40 White Blood Count 9.4 K/UL (4.8-10.8) Red Blood Count 4.06 M/UL (4.20-5.40) L Hemoglobin 11.9 G/DL (12.0-16.0) L Hematocrit 36.0 % (37.0-47.0) L Mean Corpuscular Volume 89 FL (80-99) Mean Corpuscular Hemoglobin 29.3 PG (27.0-31.0) Mean Corpuscular Hemoglobin Concent 33.1 G/DL (32.0-36.0) Red Cell Distribution Width 11.5 % (11.6-14.8) L Platelet Count 406 K/UL (150-450) Mean Platelet Volume 6.1 FL (6.5-10.1) L Neutrophils (%) (Auto) 70.4 % (45.0-75.0) Lymphocytes (%) (Auto) 18.7 % (20.0-45.0) L Monocytes (%) (Auto) 8.3 % (1.0-10.0) Eosinophils (%) (Auto) 2.0 % (0.0-3.0) Basophils (%) (Auto) 0.6 % (0.0-2.0) Sodium Level 137 MMOL/L (136-145) Potassium Level 3.6 MMOL/L (3.5-5.1) Chloride Level 101 MMOL/L (98-107) Carbon Dioxide Level 24 MMOL/L (21-32) Anion Gap 12 mmol/L (5-15) Blood Urea Nitrogen 29 mg/dL (7-18) H Creatinine 0.8 MG/DL (0.55-1.30) Estimat Glomerular Filtration Rate mL/min (>60) Glucose Level 90 MG/DL (74-106) Calcium Level 9.8 MG/DL (8.5-10.1) Microbiology Date/Time Source Procedure Growth Status 07/29/18 14:20 Urine,Clean Catch Urine Culture - Preliminary NO GROWTH Resulted Intake and Output 07/29/18 07/30/18 18:59 06:59 Intake Total 340 ml Output Total 150 ml Balance 340 ml -150 ml Intake Oral 240 ml IV Total 100 ml Output Urine Total 150 ml # Voids 2 # Bowel Movements 1 Objective General Appearance: WD/WN, no apparent distress, alert EENT: PERRL/EOMI, normal ENT inspection, TMs normal Neck: non-tender, normal alignment, supple Cardiovascular: normal peripheral pulses, regular rhythm, no gallop/murmur, no JVD, bradycardia Respiratory/Chest: chest wall non-tender, lungs clear, normal breath sounds, no respiratory distress, no accessory muscle use Abdomen: normal bowel sounds, non tender, soft, no organomegaly, no mass Extremities: normal range of motion, non-tender 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 Ruled out for Acute [place] by troponin. See cardiology note (3) Hypertension (4) LBBB (left bundle branch block) (5) Alzheimer's dementia (6) Bradycardia Assessment & Plan: Due to LBBB-see cardiology note. D/C coreg (7) Leukocytosis Assessment & Plan: Check urinalysis; start levaquin Status: stable Assessment/Plan Discharge home today with [facility] Manule William MD Jul 30, 2018 16:59
--- NOTE | 2018-07-31 13:27 | Discharge Summary ---
Discharge Summary Discharge Summary _ DATE OF ADMISSION: 07/22/2018 DATE OF DISCHARGE: 07/30/2018 CONSULTANTS: Dr. Opal Quiles BRIEF HOSPITAL COURSE: Patient is a 78-year-old -[place] female, who presented to ED with complaints of chest pain. History of present illness started on 07/22/2018. Chest pain was described to be nonradiating. Patient was somewhat confused, unable to answer questions directly. She initially presented to [facility] emergency room. She was transferred to [facility] for insurance purposes. She has medical history significant for Alzheimer's dementia, irritable bowel syndrome, cervical spine stenosis, hypertension and left bundle branch block. She was admitted for evaluation of acute coronary syndrome. She underwent cardiac evaluation. Serial troponins were monitored. Lipid panel was checked. She was given Lipitor. She was continued on Coreg. On the monitor she was found to have bradycardia, Coreg was discontinued she was placed on amlodipine and losartan for blood pressure control. Troponins were negative. She underwent nuclear stress test that showed no evidence of ischemia. She was noted to have episodes of twitching. She continued to exhibit severe problems with agitation and had been cognitively impoverish. Neurologist was consulted. Neurological exam was compatible with advanced dementia with behavioral problems. Psychiatric evaluation was done. Patient was placed on Celexa and Seroquel. She had leukocytoses and was started on Levaquin. Urine culture did not isolate any growth. She was more alert and more cooperative. Cardiac workup was negative. She was eventually discharged home with home health. FINAL DIAGNOSES: Encephalopathy due to general medical condition Atypical Chest pain ruled out for [place] Alzheimer's dementia with behavioral changes Bradycardia, resolved off Coreg Complete left bundle branch block Leukocytosis Major depressive disorder Anxiety Moderate pulmonary hypertension Hypokalemia Cervical spine stenosis Hyperlipidemia DISPOSITION: Patient was discharged home with home health. DISCHARGE MEDICATIONS: Refer to Discharge Medication List. DISCHARGE INSTRUCTIONS: Follow up with in a week. I have been assigned to dictate discharge summary on this account, and I was not involved in the patient's management. Tova Mackay NP Jul 31, 2018 13:27
--- NOTE | 2018-08-03 11:16 | Cardiology Report ---
APPROVED REPORT EXAM: Two-dimensional and M-mode echocardiogram with Doppler and color Doppler. INDICATION Chest Pain M-Mode DIMENSIONS IVSd2.8 (0.7-1.1cm)Left Atrium (MM)3.9 (1.6-4.0cm) LVDd4.3 (3.5-5.6cm)Aortic Root2.9 (2.0-3.7cm) PWd1.7 (0.7-1.1cm)Aortic Cusp Exc.1.6 (1.5-2.0cm) LVDs2.3 (2.5-4.0cm) PWs2.1 cm Normal left ventricular chamber size, systolic function and wall motion. Left ventricular ejection fraction estimated to be 55-60 %. Moderate left ventricular hypertrophy. Anterior Echo-free space, may be due to pericardial fat or effusion. All other cardiac chamber sizes are within normal limits. Focal aortic valve sclerosis with adequate cusp excursion. Thickened mitral valve leaflets with normal excursion. Mitral annulus and aortic root calcification. Pulmonic valve not well visualized. Normal tricuspid valve structure. IVC measured at 2.0 cm with physiologic collapse. A color flow and spectral Doppler study was performed and revealed: Trace aortic regurgitation. Mild mitral regurgitation. Mitral diastolic velocities suggest reduced left ventricular relaxation c/w LV diastolic dysfunction (Grade I). Mild to moderate tricuspid regurgitation. Tricuspid systolic velocities suggests peak right ventricular systolic pressure of 55 mmHg, consistent with moderate pulmonary hypertension. Trace pulmonic regurgitation present.
== END 2018-07-30 17:50 | disposition home health service (06) | DRG 313 ==
LOC: 2E 20:50 → 4E 07-29 17:16
DX: R07.89 Other chest pain (principal); G93.40 Encephalopathy, unspecified; I24.9 Acute ischemic heart disease, unspecified; F02.81 Dementia in other diseases classified elsewhere, unspecified severity, with behavioral disturbance; R47.01 Aphasia; F41.9 Anxiety disorder, unspecified; R07.9 Chest pain, unspecified; R00.1 Bradycardia, unspecified; I44.7 Left bundle-branch block, unspecified; G30.9 Alzheimer's disease, unspecified; I10 Essential (primary) hypertension; Z88.0 Allergy status to penicillin; Z88.2 Allergy status to sulfonamides; Z88.8 Allergy status to other drugs, medicaments and biological substances; M48.02 Spinal stenosis, cervical region; K58.9 Irritable bowel syndrome, unspecified; F32.9 Major depressive disorder, single episode, unspecified; I27.20 Pulmonary hypertension, unspecified; E87.6 Hypokalemia; E78.5 Hyperlipidemia, unspecified; Z98.890 Other specified postprocedural states
CPT/HCPCS: 36415; 78452; 80048; 80053; 80061; 81001; 83735; 84100; 84443; 84484; 85007; 85025; 87086; 93005; 93017; 93306; J2785; J8499